=== PATIENT | male | born 1955 | race Two or more races ===

== ENCOUNTER → 2020-01-18 | Emergency (ER) | payer MEDICAID ==
[~2020-01-18] VITALS: Ht 172.7 cm; Wt 61.2 kg
[~2020-01-18] MED LIST: FAM20T PO; KETOROLAC TROMETH 15 mg/ml 1ML VL IV ONE; KETOROLAC TROMETH 30 MG/ML 1ML VIAL ONE; POLY335015 PO; SODIUM CHLORIDE 0.9% 1,000 ML IV ONE; TAMSULOSIN HYDROCHLORIDE 0.4 MG CAP PO ONE; [UNRECOGNIZED DRUG - CODE] PO; cefTRIAXone 1GM/50ML D5W 50 ML IV ONE
[2020-01-18 08:25] VITALS: BP 125/75
[2020-01-18 08:29] LABS: Basophils # (auto) 0 10 ^3/uL (0-0.2); Basophils % (auto) 0.8 % (0.0-2.0); Eosinophils # (auto) 0 10 ^3/uL (0-0.8); Eosinophils % (auto) 0.6 % (0.0-7.0); Hematocrit 41.2 % (41.0-53.0); Hemoglobin 14.1 g/dL (13.5-17.5); Lymphocytes # (auto) 0.7 10 ^3/uL (0.4-5.4); Lymphocytes % (auto) 14.4 % (10.0-50.0); Mean Corpuscular Hemoglobin 31.3 pg (28.0-32.0); Mean Corpuscular Hgb Conc. 34.1 g/dL (32.0-36.0); Mean Corpuscular Volume 91.8 fL (80.0-100.0); Monocytes # (auto) 0.4 10 ^3/uL (0-1.3); Monocytes % (auto) 7.6 % (0.0-12.0); Neutrophils # (auto) 3.6 10 ^3/uL (1.6-8.6); Neutrophils % (auto) 76.6 % (37.0-80.0); Platelet Count (auto) 221 10^3/uL (140-450); Red Blood Cells 4.49 10^6/uL (4.5-5.90); Red Cell Distribution Width 13.6 % (11.8-14.3); White Blood Cell 4.6 10^3/uL (4.4-10.8)
[2020-01-18 08:41] LABS: Alanine Aminotransferase 18 U/L (16-61); Anion Gap 9 (5-15); Aspartate Aminotransferase 11 U/L (15-37); BUN/Creatinine Ratio 19.2; Blood Urea Nitrogen 15 mg/dL (7-18); Calcium 9.1 mg/dL (8.5-10.1); Carbon Dioxide 25 mmol/L (21-32); Chloride 99 mmol/L (98-107); GFR African American 129 mL/min; GFR Non-African American 107 mL/min; Glucose 96 mg/dL (74-106); Potassium 4.2 mmol/L (3.5-5.1); Sodium 133 mmol/L (136-145)
[2020-01-18 08:46] LABS: Alkaline Phosphatase 73 U/L (45-117); Bilirubin, Total 0.6 mg/dL (0.2-1.0); Total Protein 7.5 g/dL (6.4-8.2)
[2020-01-18 08:46] LABS: Urine Bacteria FEW /hpf (None Seen); Urine Blood 2+ /uL (Negative); Urine Mucus FEW (None Seen); Urine Specific Gravity 1.019 (1.001-1.035); Urine WBC 2 /hpf (0 - 3)
== END | disposition home or self-care (01) ==
LOC: EDUNIT# 07:53 → EDBD 07:53 → ER 07:53
DX: N39.0 Urinary tract infection, site not specified (principal); I10 Essential (primary) hypertension
CPT/HCPCS: 36415; 74176; 80053; 81001; 84154; 84484; 85025; 87086; 93005; 96365; 96375; 99285; J0696; J1885; 87088; 87186

== ENCOUNTER 2020-01-24 10:25 | Emergency (ER) | payer MEDICAID ==
[~2020-01-24] VITALS: Ht 172.7 cm; Wt 61.2 kg
[~2020-01-24 10:25] MED LIST changes: -KETOROLAC TROMETH 15 mg/ml 1ML VL IV ONE; -KETOROLAC TROMETH 30 MG/ML 1ML VIAL ONE; -SODIUM CHLORIDE 0.9% 1,000 ML IV ONE; -TAMSULOSIN HYDROCHLORIDE 0.4 MG CAP PO ONE; -cefTRIAXone 1GM/50ML D5W 50 ML IV ONE
[2020-01-24 12:06] LABS: Urine Bacteria NONE SEEN /hpf (None Seen); Urine Blood Negative /uL (Negative); Urine Specific Gravity 1.014 (1.001-1.035); Urine WBC <1 /hpf (0 - 3)
[2020-01-24] MEDS ORDERED: METOCLOPRAMIDE HCL 5MG/ml INJ 2ml VIAL IM ONE (12:15)
[2020-01-24] MEDS ORDERED: KETOROLAC TROMETH 60MG/2ML VIAL IM ONE (12:15)
[2020-01-24 13:00] VITALS: BP 105/70
[2020-01-24 13:14] LABS: Basophils # (auto) 0.1 10 ^3/uL (0-0.2); Basophils % (auto) 0.9 % (0.0-2.0); Eosinophils # (auto) 0.1 10 ^3/uL (0-0.8); Eosinophils % (auto) 1.4 % (0.0-7.0); Hematocrit 38.6 % (41.0-53.0); Hemoglobin 13.3 g/dL (13.5-17.5); Lymphocytes # (auto) 1.2 10 ^3/uL (0.4-5.4); Mean Corpuscular Hemoglobin 31.7 pg (28.0-32.0); Mean Corpuscular Hgb Conc. 34.6 g/dL (32.0-36.0); Mean Corpuscular Volume 91.6 fL (80.0-100.0); Monocytes # (auto) 0.5 10 ^3/uL (0-1.3); Monocytes % (auto) 8.1 % (0.0-12.0); Neutrophils # (auto) 4.2 10 ^3/uL (1.6-8.6); Neutrophils % (auto) 69.6 % (37.0-80.0); Nucleated Red Blood Cells % 0.1 %; Platelet Count (auto) 210 10^3/uL (140-450); Red Blood Cells 4.21 10^6/uL (4.5-5.90); Red Cell Distribution Width 13.3 % (11.8-14.3); White Blood Cell 6.1 10^3/uL (4.4-10.8)
[2020-01-24 13:38] LABS: Calcium 8.9 mg/dL (8.5-10.1); Potassium 3.8 mmol/L (3.5-5.1)
[2020-01-24 13:42] LABS: BUN/Creatinine Ratio 23.4; Bilirubin, Total 0.4 mg/dL (0.2-1.0); Total Protein 7.2 g/dL (6.4-8.2)
[2020-01-24] MEDS ORDERED: FAMOTIDINE 20 MG TAB PO ONE (14:45)
[2020-01-24] MEDS ORDERED: DONNATAL 5ml ORAL Elix (BELLADONNA ALK-PHENOBARB) PO ONE (14:45)
[2020-01-24] MEDS ORDERED: ALUM & MAG HYDROX-SIMETH LIQ(MAALOX) 30 ML PO ONE (14:45)
== END 2020-01-24 14:53 | disposition home or self-care (01) ==
LOC: ER 10:25
DX: R10.11 Right upper quadrant pain (principal); R19.7 Diarrhea, unspecified; R11.2 Nausea with vomiting, unspecified; K21.9 Gastro-esophageal reflux disease without esophagitis; E11.9 Type 2 diabetes mellitus without complications; Z90.49 Acquired absence of other specified parts of digestive tract; Z88.2 Allergy status to sulfonamides
CPT/HCPCS: 36415; 80053; 81001; 85025; 93005; 96372; 99284; J1885; J2765

== ENCOUNTER → 2020-01-26 | Emergency (ER) | payer MEDICAID ==
[~2020-01-26] VITALS: Ht 172.7 cm; Wt 63.0 kg
[~2020-01-26] MED LIST changes: +KETOROLAC TROMETH 60MG/2ML VIAL IM ONE
[2020-01-26 11:40] VITALS: BP 112/65
== END | disposition home or self-care (01) ==
LOC: ER 10:53
DX: R10.13 Epigastric pain (principal); E11.9 Type 2 diabetes mellitus without complications; I10 Essential (primary) hypertension; K21.9 Gastro-esophageal reflux disease without esophagitis; Z90.49 Acquired absence of other specified parts of digestive tract; Z79.899 Other long term (current) drug therapy; Z88.2 Allergy status to sulfonamides; Z88.8 Allergy status to other drugs, medicaments and biological substances
CPT/HCPCS: 93005; 96372; 99283; J1885

== ENCOUNTER 2020-05-24 11:59 | Emergency (ER) | payer MEDICAID ==
[~2020-05-24] VITALS: Ht 172.7 cm; Wt 63.5 kg
[~2020-05-24 11:59] MED LIST changes: -FAM20T PO; +FAMO20TA10 PO; -KETOROLAC TROMETH 60MG/2ML VIAL IM ONE
[2020-05-24] MEDS ORDERED: LIDOCAINE VISCOUS 2% 15ML UD PO ONE (13:00)
[2020-05-24] MEDS ORDERED: DONNATAL 5ml ORAL Elix (BELLADONNA ALK-PHENOBARB) PO ONE (13:00)
[2020-05-24] MEDS ORDERED: ALUM & MAG HYDROX-SIMETH LIQ(MAALOX) 30 ML PO ONE (13:00)
[2020-05-24 13:24] LABS: Basophils # (auto) 0 10 ^3/uL (0-0.2); Basophils % (auto) 0.6 % (0.0-2.0); Eosinophils # (auto) 0.1 10 ^3/uL (0-0.8); Hematocrit 40.9 % (41.0-53.0); Hemoglobin 14.1 g/dL (13.5-17.5); Lymphocytes # (auto) 0.8 10 ^3/uL (0.4-5.4); Lymphocytes % (auto) 15.9 % (10.0-50.0); Mean Corpuscular Hemoglobin 31.6 pg (28.0-32.0); Mean Corpuscular Hgb Conc. 34.6 g/dL (32.0-36.0); Mean Corpuscular Volume 91.3 fL (80.0-100.0); Monocytes # (auto) 0.5 10 ^3/uL (0-1.3); Monocytes % (auto) 9.1 % (0.0-12.0); Neutrophils # (auto) 3.9 10 ^3/uL (1.6-8.6); Neutrophils % (auto) 73.4 % (37.0-80.0); Nucleated Red Blood Cells % 0.1 %; Platelet Count (auto) 158 10^3/uL (140-450); Red Blood Cells 4.48 10^6/uL (4.5-5.90); Red Cell Distribution Width 12.8 % (11.8-14.3); White Blood Cell 5.3 10^3/uL (4.4-10.8)
[2020-05-24 13:44] LABS: Albumin 4.1 g/dL (3.4-5.0); Anion Gap 4 (5-15); Blood Urea Nitrogen 15 mg/dL (7-18); Calcium 8.7 mg/dL (8.5-10.1); Carbon Dioxide 29 mmol/L (21-32); Chloride 98 mmol/L (98-107); Glucose 89 mg/dL (74-106); Sodium 131 mmol/L (136-145)
[2020-05-24 13:46] LABS: Alanine Aminotransferase 16 U/L (16-61); Aspartate Aminotransferase 10 U/L (15-37); GFR African American 120 mL/min; GFR Non-African American 99 mL/min
[2020-05-24 13:50] LABS: Alkaline Phosphatase 61 U/L (45-117); Bilirubin, Total 0.7 mg/dL (0.2-1.0); Total Protein 7.5 g/dL (6.4-8.2)
[2020-05-24 13:51] LABS: BUN/Creatinine Ratio 18.1
[2020-05-24 15:13] VITALS: BP 135/78
== END 2020-05-24 15:21 | disposition home or self-care (01) ==
LOC: ER 11:59
DX: K29.70 Gastritis, unspecified, without bleeding (principal); E11.9 Type 2 diabetes mellitus without complications; K21.9 Gastro-esophageal reflux disease without esophagitis; I10 Essential (primary) hypertension; Z88.2 Allergy status to sulfonamides
CPT/HCPCS: 36415; 71046; 74176; 80053; 83690; 84484; 85025; 93005

== ENCOUNTER 2022-02-19 15:47 | Emergency (ER) | payer MEDICARE, MEDICAID ==
[~2022-02-19] VITALS: Ht 170.2 cm; Wt 68.0 kg
[2022-02-19 18:32] LABS: Basophils # (auto) 0 10 ^3/uL (0-0.2); Basophils % (auto) 0.5 % (0.0-2.0); Eosinophils # (auto) 0 10 ^3/uL (0-0.8); Eosinophils % (auto) 0.4 % (0.0-7.0); Hematocrit 37.2 % (41.0-53.0); Lymphocytes # (auto) 0.8 10 ^3/uL (0.4-5.4); Mean Corpuscular Hemoglobin 31.1 pg (28.0-32.0); Mean Corpuscular Hgb Conc. 34.9 g/dL (32.0-36.0); Mean Corpuscular Volume 89.1 fL (80.0-100.0); Monocytes # (auto) 0.8 10 ^3/uL (0-1.3); Monocytes % (auto) 10.1 % (0.0-12.0); Neutrophils # (auto) 6.3 10 ^3/uL (1.6-8.6); Nucleated Red Blood Cells % 0.1 %; Red Blood Cells 4.17 10^6/uL (4.5-5.90)
[2022-02-19 18:53] LABS: Albumin 4.1 g/dL (3.4-5.0); Calcium 9.1 mg/dL (8.5-10.1); Potassium 3.8 mmol/L (3.5-5.1)
[2022-02-19 18:57] LABS: BUN/Creatinine Ratio 14.8; Bilirubin, Total 0.4 mg/dL (0.2-1.0)
[2022-02-19] MEDS ORDERED: LORazepam 2MG/ML-1ML VIAL IV ONE (20:45)
[2022-02-19] MEDS ORDERED: LIDOCAINE 2% JELLY 11ml (GLYDO) UR ONE (20:45)
[2022-02-19 21:06] VITALS: BP 127/73
[2022-02-19 21:27] LABS: Urine Bacteria FEW /hpf (None Seen); Urine Blood Negative /uL (Negative); Urine Hyaline Cast FEW /lpf (0 - 2); Urine Specific Gravity 1.005 (1.001-1.035); Urine WBC 1 /hpf (0 - 3)
[2022-02-19] MEDS ORDERED: TAM04C PO (21:35)
== END 2022-02-19 23:27 | disposition home or self-care (01) ==
LOC: ER 15:47 → EDBD 15:47 → ER 23:27
DX: R33.9 Retention of urine, unspecified (principal); E11.9 Type 2 diabetes mellitus without complications; K21.9 Gastro-esophageal reflux disease without esophagitis; I10 Essential (primary) hypertension; Z90.49 Acquired absence of other specified parts of digestive tract; Z88.2 Allergy status to sulfonamides
CPT/HCPCS: 36415; 51702; 74176; 80053; 81001; 82150; 83690; 85025; 93005; 99285; J2060

== ENCOUNTER 2022-04-05 04:57 | Emergency (ER) | payer MEDICARE, MEDICAID ==
[~2022-04-05] VITALS: Ht 175.3 cm; Wt 68.0 kg
[~2022-04-05 04:57] MED LIST changes: +TAM04C PO
[2022-04-05 10:00] VITALS: BP 167/78
[2022-04-05] MEDS ORDERED: ONDANSETRON ODT 4 MG TAB PO ONE (10:00)
[2022-04-05] MEDS ORDERED: MORPHINE SULFATE INJ 2 MG/ml SYRG IM ONE (10:00)
[2022-04-05] MEDS ORDERED: HYDR-4902 PO (10:03)
[2022-04-05] MEDS ORDERED: HYDR-4798 PO ×2 (10:21→10:23)
[2022-04-05] MEDS ORDERED: HYDR-4795 PO (11:10)
== END 2022-04-05 11:02 | disposition home or self-care (01) ==
LOC: EDBD 04:57 → ER 04:57 → EDUNIT# 04:57 → ER 11:02
DX: G89.29 Other chronic pain (principal); M54.50 Low back pain, unspecified; E11.9 Type 2 diabetes mellitus without complications; K21.9 Gastro-esophageal reflux disease without esophagitis; Z90.49 Acquired absence of other specified parts of digestive tract; Z88.2 Allergy status to sulfonamides; Z76.0 Encounter for issue of repeat prescription
CPT/HCPCS: 96372; 99283; J2270; Q0162

== ENCOUNTER 2022-09-13 04:51 | Inpatient (IN) | payer MEDICARE, MEDICAID ==
[~2022-09-13] VITALS: Ht 185.4 cm; Wt 61.5 kg
[~2022-09-13 04:51] MED LIST changes: +HYDR-4795 PO
[2022-09-13] MEDS ORDERED: ONDANSETRON ODT 4 MG TAB PO ONE (08:30)
[2022-09-13] MEDS ORDERED: MORPHINE SULFATE 4 MG/ML SYR/VIAL IM ONE (08:30)
[2022-09-13 12:03] LABS: Basophils # (auto) 0 10 ^3/uL (0-0.2); Basophils % (auto) 0.3 % (0.0-2.0); Eosinophils # (auto) 0 10 ^3/uL (0-0.8); Eosinophils % (auto) 0.4 % (0.0-7.0); Lymphocytes # (auto) 0.9 10 ^3/uL (0.4-5.4); Lymphocytes % (auto) 15.8 % (10.0-50.0); Mean Corpuscular Hemoglobin 31.2 pg (28.0-32.0); Mean Corpuscular Hgb Conc. 34.2 g/dL (32.0-36.0); Mean Corpuscular Volume 91.3 fL (80.0-100.0); Monocytes # (auto) 0.4 10 ^3/uL (0-1.3); Monocytes % (auto) 6.6 % (0.0-12.0); Neutrophils # (auto) 4.5 10 ^3/uL (1.6-8.6); Neutrophils % (auto) 76.9 % (37.0-80.0); Red Blood Cells 4.49 10^6/uL (4.5-5.90); Red Cell Distribution Width 14.1 % (11.8-14.3); White Blood Cell 5.8 10^3/uL (4.4-10.8)
[2022-09-13 12:25] LABS: Albumin 4.6 g/dL (3.4-5.0); BUN/Creatinine Ratio 15.2; Calcium 9.6 mg/dL (8.5-10.1); Potassium 4.4 mmol/L (3.5-5.1); Total Protein 8.2 g/dL (6.4-8.2)
[2022-09-13 12:30] LABS: Bilirubin, Total 0.5 mg/dL (0.2-1.0)
[2022-09-13 12:50] LABS: Urine Bacteria NONE SEEN /hpf (None Seen); Urine Blood Negative /uL (Negative); Urine Specific Gravity 1.016 (1.001-1.035); Urine WBC 1 /hpf (0 - 3)
[2022-09-13] MEDS ORDERED: DEXTROSE (50%) 50ML SYRG IV PRN (18:00)
[2022-09-13] MEDS: SODIUM CHLORIDE 0.9% 1,000 ML IV SCH (18:46)
[2022-09-13 19:09] LABS: Cholesterol 228 mg/dL (< 200); HDL Cholesterol 63 mg/dL (40-59); LDL Cholesterol 166 mg/dL (< 100); Triglycerides 66 mg/dL (< 150)
[2022-09-13] MEDS: MORPHINE SULFATE INJ 2 MG/ml SYRG IV PRN ×2 (20:30→22:39)
[2022-09-13] MEDS ORDERED: diazePAM 5 MG TAB PO ONE ×2 (20:45→23:00)
[2022-09-13] MEDS: ACCU-CHEK COMFORT CURVE STRIP VI SCH (22:00)
[2022-09-13] MEDS: PANTOPRAZOLE 40 MG/10 ML VIAL INJ IV SCH (22:00)
[2022-09-13] MEDS: InsuLIN REG 1unit/0.01ml Soln (100units/ml) SC SCH (22:00)
[2022-09-13] MEDS: ONDANSETRON HCL 4 MG/2 ML VIAL IV PRN (23:04)
[2022-09-14] MEDS: ACETAMINOPHEN 325 MG TAB PO PRN ×2 (03:20→05:56)
[2022-09-14 05:10] LABS: Basophils # (auto) 0 10 ^3/uL (0-0.2); Basophils % (auto) 0.5 % (0.0-2.0); Eosinophils # (auto) 0.1 10 ^3/uL (0-0.8); Eosinophils % (auto) 2.1 % (0.0-7.0); Hemoglobin 12.8 g/dL (13.5-17.5); Lymphocytes % (auto) 19.2 % (10.0-50.0); Mean Corpuscular Hemoglobin 31.3 pg (28.0-32.0); Mean Corpuscular Hgb Conc. 33.7 g/dL (32.0-36.0); Mean Corpuscular Volume 92.8 fL (80.0-100.0); Monocytes # (auto) 0.5 10 ^3/uL (0-1.3); Monocytes % (auto) 10.4 % (0.0-12.0); Neutrophils # (auto) 3.4 10 ^3/uL (1.6-8.6); Neutrophils % (auto) 67.8 % (37.0-80.0); Red Blood Cells 4.09 10^6/uL (4.5-5.90); Red Cell Distribution Width 14.4 % (11.8-14.3)
[2022-09-14 05:22] LABS: Anion Gap 7 (5-15); BUN/Creatinine Ratio 15.6; Blood Urea Nitrogen 12 mg/dL (7-18); Calcium 8.7 mg/dL (8.5-10.1); Carbon Dioxide 25 mmol/L (21-32); Chloride 107 mmol/L (98-107); GFR African American 130 mL/min; GFR Non-African American 108 mL/min; Glucose 104 mg/dL (74-106); Sodium 139 mmol/L (136-145)
[2022-09-14] MEDS: SODIUM CHLORIDE 0.9% 1,000 ML IV SCH ×2 (06:20→20:25)
[2022-09-14] MEDS: InsuLIN REG 1unit/0.01ml Soln (100units/ml) SC SCH ×4 (07:00→22:00)
[2022-09-14] MEDS: ACCU-CHEK COMFORT CURVE STRIP VI SCH ×4 (07:09→22:00)
[2022-09-14] MEDS: ONDANSETRON HCL 4 MG/2 ML VIAL IV PRN ×3 (08:19→22:46)
[2022-09-14] MEDS: MORPHINE SULFATE INJ 2 MG/ml SYRG IV PRN ×3 (08:19→22:45)
[2022-09-14] MEDS ORDERED: ENOXAPARIN SOD 40 MG/0.4 ML SYRINGE SC SCH (10:00)
[2022-09-14] MEDS: diazePAM 5 MG TAB PO PRN ×2 (11:26→20:10)
[2022-09-14] MEDS: TAMSULOSIN HYDROCHLORIDE 0.4 MG CAP PO SCH (11:26)
[2022-09-14] MEDS: PANTOPRAZOLE 40 MG/10 ML VIAL INJ IV SCH ×2 (11:26→22:44)
[2022-09-14] MEDS: SUCRALFATE 1 GM/10 ML ORAL SUSP PO SCH (16:37)
[2022-09-14 17:47] VITALS: BP 125/90
[2022-09-14 22:00] VITALS: BP 108/78
[2022-09-15] MEDS: MORPHINE SULFATE INJ 2 MG/ml SYRG IV PRN ×4 (03:10→21:34)
[2022-09-15] MEDS: HYDROcodone-ACET 5/325MG TAB PO PRN ×2 (03:25→10:06)
[2022-09-15] MEDS: diazePAM 5 MG TAB PO PRN ×3 (04:35→23:33)
[2022-09-15 05:00] VITALS: BP 116/80
[2022-09-15] MEDS: InsuLIN REG 1unit/0.01ml Soln (100units/ml) SC SCH ×4 (07:00→22:00)
[2022-09-15] MEDS: ACCU-CHEK COMFORT CURVE STRIP VI SCH ×4 (07:04→21:40)
[2022-09-15] MEDS: SUCRALFATE 1 GM/10 ML ORAL SUSP PO SCH ×2 (07:04→17:31)
[2022-09-15 09:00] VITALS: BP_SYST 120; BP_SYST 126; BP_DIAS 53; BP_DIAS 59
[2022-09-15] MEDS: SODIUM CHLORIDE 0.9% 1,000 ML IV SCH ×2 (09:45→23:05)
[2022-09-15] MEDS: TAMSULOSIN HYDROCHLORIDE 0.4 MG CAP PO SCH (10:06)
[2022-09-15] MEDS: PANTOPRAZOLE 40 MG/10 ML VIAL INJ IV SCH ×2 (10:06→21:33)
[2022-09-15] MEDS ORDERED: POLYETHYLENE GLYCOL 17 GM PWDR PO PRN (11:30)
[2022-09-15 13:00] VITALS: BP 123/81
[2022-09-15 16:50] VITALS: BP 120/64
[2022-09-15] MEDS: HYDROcodone-ACET 10/325MG TAB PO PRN (18:59)
[2022-09-15] MEDS: ONDANSETRON HCL 4 MG/2 ML VIAL IV PRN (21:34)
[2022-09-15 22:00] VITALS: BP 101/73
[2022-09-16] MEDS: ACETAMINOPHEN 325 MG TAB PO PRN (00:17)
[2022-09-16] MEDS: MORPHINE SULFATE INJ 2 MG/ml SYRG IV PRN ×3 (04:47→22:18)
[2022-09-16 05:00] VITALS: BP 107/80
[2022-09-16] MEDS: SUCRALFATE 1 GM/10 ML ORAL SUSP PO SCH ×2 (06:27→17:00)
[2022-09-16] MEDS: InsuLIN REG 1unit/0.01ml Soln (100units/ml) SC SCH ×4 (06:39→21:40)
[2022-09-16] MEDS: ACCU-CHEK COMFORT CURVE STRIP VI SCH ×4 (06:39→21:40)
[2022-09-16] MEDS: diazePAM 5 MG TAB PO PRN ×3 (07:54→23:32)
[2022-09-16] MEDS: HYDROcodone-ACET 10/325MG TAB PO PRN ×2 (07:54→20:07)
[2022-09-16] MEDS ORDERED: NALOXONE HCL 0.4 MG/ML VIAL ONE ×2 (08:16→10:04)
[2022-09-16] MEDS ORDERED: MIDAZOLAM HCL 5 MG/ML-1ML VIAL ONE ×2 (08:17→08:21)
[2022-09-16] MEDS ORDERED: FLUMAZENIL 0.1 MG/ML INJ 10ML MDV IV ONE (08:17)
[2022-09-16] MEDS ORDERED: diphenhdrAMINE HCL 50 MG/1 ML VL ONE (08:17)
[2022-09-16] MEDS ORDERED: fentaNYL CITRATE 100 MCG/2 ML VL ONE (08:17)
[2022-09-16] MEDS ORDERED: LIDOCAINE VISCOUS 2% 15ML UD ONE (08:17)
[2022-09-16] MEDS ORDERED: SODIUM CHLORIDE LOCK 10 ML ONE ×2 (08:17→08:22)
[2022-09-16] MEDS: PANTOPRAZOLE 40 MG/10 ML VIAL INJ IV SCH ×2 (08:30→21:58)
[2022-09-16] MEDS: TAMSULOSIN HYDROCHLORIDE 0.4 MG CAP PO SCH (08:31)
[2022-09-16 09:00] VITALS: BP 125/77
[2022-09-16] MEDS ORDERED: EPINEPHrine HCL 1 MG/10 ML SYRG ONE (10:06)
[2022-09-16] MEDS: SODIUM CHLORIDE 0.9% 1,000 ML IV SCH (12:25)
[2022-09-16 13:00] VITALS: BP 101/65
[2022-09-16] MEDS ORDERED: LIDOCAINE 2% (LOCAL ANESTH.) PF 5ml SDV ONE (15:56)
[2022-09-16] MEDS ORDERED: PROPOFOL 10 MG/ML 20 ML IV ONE (15:56)
[2022-09-16 17:18] VITALS: BP 111/66
[2022-09-16 22:00] VITALS: BP 115/77
[2022-09-17] MEDS: SODIUM CHLORIDE 0.9% 1,000 ML IV SCH (03:00)
[2022-09-17 05:00] VITALS: BP 104/61
[2022-09-17] MEDS: MORPHINE SULFATE INJ 2 MG/ml SYRG IV PRN ×3 (05:07→13:47)
[2022-09-17] MEDS: diazePAM 5 MG TAB PO PRN ×3 (05:44→16:45)
[2022-09-17] MEDS: InsuLIN REG 1unit/0.01ml Soln (100units/ml) SC SCH ×3 (06:05→17:00)
[2022-09-17] MEDS: ACCU-CHEK COMFORT CURVE STRIP VI SCH ×2 (06:05→11:30)
[2022-09-17] MEDS: SUCRALFATE 1 GM/10 ML ORAL SUSP PO SCH (06:28)
[2022-09-17 09:00] VITALS: BP 116/73
[2022-09-17] MEDS: PANTOPRAZOLE 40 MG/10 ML VIAL INJ IV SCH (09:18)
[2022-09-17] MEDS: TAMSULOSIN HYDROCHLORIDE 0.4 MG CAP PO SCH (09:18)
[2022-09-17] MEDS ORDERED: PANT40TA2 PO (09:20)
[2022-09-17] MEDS: HYDROcodone-ACET 10/325MG TAB PO PRN ×2 (11:46→16:57)
[2022-09-17 13:00] VITALS: BP 93/70
[2022-09-17 14:06] VITALS: BP 112/74
[2022-09-17 17:00] VITALS: BP 105/86
== END 2022-09-17 17:00 | disposition hospice, home (50) | DRG 241 ==
LOC: ER 04:51 → EDBD 04:51 → OVERFLOW 17:46 → WEST WING 09-14 16:01
PROVIDERS: ADMIT Registered Nurse; ATTEND Internal Medicine
PROC: 0DB68ZX Excision of Stomach, Via Natural or Artificial Opening Endoscopic, Diagnostic (ICD-10-PCS; 2022-09-16)
PROC: 0DB98ZX Excision of Duodenum, Via Natural or Artificial Opening Endoscopic, Diagnostic (ICD-10-PCS; principal; 2022-09-16 16:15)
DX: K29.70 Gastritis, unspecified, without bleeding (principal); R62.7 Adult failure to thrive; E11.9 Type 2 diabetes mellitus without complications; F41.9 Anxiety disorder, unspecified; Z20.822 Contact with and (suspected) exposure to COVID-19; I10 Essential (primary) hypertension; K44.9 Diaphragmatic hernia without obstruction or gangrene; K21.9 Gastro-esophageal reflux disease without esophagitis; M54.9 Dorsalgia, unspecified; G89.29 Other chronic pain; Z90.49 Acquired absence of other specified parts of digestive tract; Z88.2 Allergy status to sulfonamides; Z88.8 Allergy status to other drugs, medicaments and biological substances
CPT/HCPCS: 36415; 43239; 71046; 74176; 80048; 80053; 80061; 81001; 82962; 83036; 83690; 84443; 85025; 87081; 87086; 87088; 87186; 87426; 93005; 96360; 96372; C9113; G0378; J2001; J2250; J2405; J2704; Q0162

== ENCOUNTER 2023-09-11 14:36 | Emergency (ER) | payer MEDICARE, MEDICAID ==
[~2023-09-11] VITALS: Ht 172.7 cm; Wt 59.6 kg
[~2023-09-11 14:36] MED LIST changes: +DESM0.1T13 PO; -FAMO20TA10 PO; +PANT40TA2 PO; -TAM04C PO; +TAMS-35 PO; -[UNRECOGNIZED DRUG - CODE] PO
[2023-09-11 15:42] LABS: Urine Bacteria NONE SEEN /hpf (None Seen); Urine Blood Negative /uL (Negative); Urine Clarity Clear (Clear); Urine Color Yellow (Yellow); Urine Mucus FEW (None Seen); Urine Protein, UAD Negative (Negative); Urine Specific Gravity 1.018 (1.001-1.035); Urine Urobilinogen Normal (Negative); Urine WBC <1 /hpf (0 - 3); Urine pH 6.5 (5.0-8.0)
[2023-09-11 15:43] LABS: Basophils # (auto) 0 10 ^3/uL (0-0.2); Basophils % (auto) 0.6 % (0.0-2.0); Eosinophils # (auto) 0.1 10 ^3/uL (0-0.8); Eosinophils % (auto) 1.6 % (0.0-7.0); Hematocrit 39.5 % (41.0-53.0); Hemoglobin 13.6 g/dL (13.5-17.5); Lymphocytes # (auto) 1.1 10 ^3/uL (0.4-5.4); Lymphocytes % (auto) 21.1 % (10.0-50.0); Mean Corpuscular Hgb Conc. 34.5 g/dL (32.0-36.0); Mean Corpuscular Volume 92.6 fL (80.0-100.0); Monocytes # (auto) 0.4 10 ^3/uL (0-1.3); Monocytes % (auto) 8.5 % (0.0-12.0); Neutrophils # (auto) 3.6 10 ^3/uL (1.6-8.6); Neutrophils % (auto) 68.2 % (37.0-80.0); Nucleated Red Blood Cells % 0.1 %; Red Blood Cells 4.27 10^6/uL (4.5-5.90); Red Cell Distribution Width 13.2 % (11.8-14.3); White Blood Cell 5.2 10^3/uL (4.4-10.8)
[2023-09-11] MEDS ORDERED: SODIUM CHLORIDE 0.9% 1,000 ML IV ONE (17:15)
[2023-09-11] MEDS ORDERED: KETAMINE 50mg/ML 1ml syringe IV ONE (17:15)
[2023-09-11 17:16] LABS: Alanine Aminotransferase 14 U/L (7-40); Alkaline Phosphatase 62 U/L (46-116); Anion Gap 5 (5-15); Aspartate Aminotransferase 15 U/L (13-40); BUN/Creatinine Ratio 15.4 (10.0-20.0); Blood Urea Nitrogen 14 mg/dL (9-23); Calcium 9.5 mg/dL (8.7-10.4); Carbon Dioxide 28 mmol/L (20-30); Chloride 99 mmol/L (98-107); Glucose 97 mg/dL (74-106); Lipase 31 U/L (12-53); Potassium 4.3 mmol/L (3.5-5.1); Sodium 132 mmol/L (136-145)
[2023-09-11 17:17] LABS: Bilirubin, Total 0.5 mg/dL (0.2-1.0); Total Protein 7.2 g/dL (5.7-8.2)
[2023-09-11] MEDS ORDERED: MAGNESIUM CITRATE SOLUTION 300 ML BTL PO ONE (18:30)
[2023-09-11] MEDS ORDERED: FLEET ENEMA(ADULT) 135 ML PR ONE ×2 (18:30→20:15)
[2023-09-11] MEDS ORDERED: LORazepam 2MG/ML-1ML VIAL IV ONE (18:30)
[2023-09-11] MEDS ORDERED: KETOROLAC TROMETH 30 MG/ML 1ML VIAL IV ONE (20:00)
[2023-09-11] MEDS ORDERED: ALPRAZolam 0.5 MG TAB PO ONE (20:00)
[2023-09-11 20:01] VITALS: BP 111/75; PULSE 75; RESP 18; TEMP 97.6; O2SAT 96
[2023-09-11] MEDS ORDERED: KETOROLAC TROMETH 30 MG/ML 1ML VIAL IM ONE (20:15)
== END 2023-09-11 22:37 | disposition home or self-care (01) ==
LOC: ER 14:36
DX: G89.29 Other chronic pain (principal); R10.84 Generalized abdominal pain; F11.20 Opioid dependence, uncomplicated; K59.03 Drug induced constipation; T40.2X5A Adverse effect of other opioids, initial encounter; K21.9 Gastro-esophageal reflux disease without esophagitis; I10 Essential (primary) hypertension; E11.9 Type 2 diabetes mellitus without complications; Z79.899 Other long term (current) drug therapy; Z88.2 Allergy status to sulfonamides; Z88.8 Allergy status to other drugs, medicaments and biological substances; Y92.89 Other specified places as the place of occurrence of the external cause
CPT/HCPCS: 36415; 74176; 80053; 81001; 83690; 85025; 93005; 96372; 99285; J1885

== ENCOUNTER 2024-09-11 06:51 | Inpatient (IN) | payer MEDICARE, MEDICAID ==
[~2024-09-11] VITALS: Ht 172.7 cm; Wt 79.3 kg
--- NOTE | 2024-09-11 07:01 | ECG ---
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
--- NOTE | 2024-09-11 07:07 | ED.PDOC ---
History of Present Illness HPI Comments 68-year-old male presents with a chief complaint of chest pain x onset last night with associated SOB, nausea, vomiting, and diarrhea. Patient states that his pain is localized to his sternal region, non-radiating, describes as pressure, and rates his pain a 7 out of 10. Patients EKG shows NSR with a rate of 92 and LAE. Patient denies any MIs in the past, but does report a history of CHF. 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 Patient mentions that onset of his symptoms began last night and have worsened this morning. No other symptoms or modifying factors present at this time. Chief Complaint: Chest Pain Time Seen by MD: 07:00 Primary Care Provider: Unknown Reviewed Notes: Nurses Notes, Medications, Allergies Allergies: Coded Allergies: Nitrofurantoin (Verified Allergy, Unknown, 01/26/20) Sulfa Antibiotics (Verified Allergy, Unknown, 01/18/20) Sulfamethoxazole w/Trimethoprim (Verified Allergy, Unknown, 01/26/20) Home Meds Active Scripts Pantoprazole Sodium Sesquihydr (Protonix) 40 Mg Tab, 40 MG PO DAILY, #30 TAB 5 Refills Prov:KELTON PENA MD 09/17/22 Hydrocodone-Acetaminophen (Hydrocodone Bitartrate/AC 7.5-325 mg) 1 Tab Tab, 1 TAB PO QIDP, #10 TAB 0 Refills Prov:LUCIO JUDD 04/05/22 Tamsulosin Hcl (Flomax) 0.4 Mg Cap, 1 CAP PO DAILY, #30 CAP 11 Refills Prov:LEEROY PERKINS MD 02/19/22 Reported Medications Polyethylene Glycol (Miralax) 3,350 Nf Pow, 1 PACK PO DAILYP, #30 PACK 3 Refills 12/13/19 Desmopressin Acetate (Desmopressin Acetate) Unknown Strength Tab, PO HS, TAB 12/13/19 Information Source: Patient Mode of Arrival: Ambulatory Severity: Moderate Timing: Hours Duration: Since onset Prehospital treatment: None Past Medical History PAST MEDICAL HISTORY: CHF, DM, GERD, HTN, Liver Surgical History: Cholecystectomy Family History Family History: Reviewed,noncontributory to illness Social History Smoker: Non-Smoker Alcohol: Denies ETOH Use Drugs: Denies Drug Use Lives In: Home Constitutional: denies: chills, diaphoresis, fatigue, fever, malaise, sweats, weakness, others EENTM: denies: blurred vision, double vision, ear bleeding, ear discharge, ear drainage, ear pain, ear ringing, eye pain, eye redness, hearing loss, mouth pain, mouth swelling, nasal discharge, nose bleeding, nose congestion, nose pain, photophobia, tearing, throat pain, throat swelling, voice changes, others Respiratory: reports: shortness of breath; denies: cough, hemoptysis, orthopnea, SOB at rest, SOB with excertion, stridor, wheezing, others Cardiovascular: reports: chest pain; denies: dizzy spells, diaphoresis, Dyspnea on exertion, edema, irregular heart beat, left arm pain, lightheadedness, palpitations, PND, syncope, others Gastrointestinal: reports: diarrhea, nausea, vomiting; denies: abdomen distended, abdominal pain, blood streaked bowels, constipated, dysphagia, difficulty swallowing, hematemesis, melena, poor appetite, poor fluid intake, rectal bleeding, rectal pain, others Genitourinary: denies: burning, dysuria, flank pain, frequency, hematuria, incontinence, penile discharge, penile sore, pain, testicle pain, testicle swelling, urgency, others Neurological: denies: dizziness, fainting, headache, left sided numbness, left sided weakness, numbness, paresthesia, pre-existing deficit, right sided numbness, right sided weakness, seizure, speech problems, tingling, tremors, weakness, others Musculoskeletal: denies: back pain, gout, joint pain, joint swelling, muscle pain, muscle stiffness, neck pain, others Integumetry: denies: bruises, change in color, change in hair/nails, dryness, laceration, lesions, lumps, rash, wounds, others Allergic/Immunocompromised: denies: Difficulty Healing, Frequent Infections, Hives, Itching, others Hematologic/Lymphatic: denies: anemia, blood clots, easy bleeding, easy bruising, swollen glands, others Endocrine: denies: excessive hunger, excessive sweating, excessive thirst, excessive urination, flushing, intolerance to cold, intolerance to heat, unexplained weight gain, unexplained weight loss, others Psychiatric: denies: anxiety, bipolar disorder, depression, hopeless, panic d isorder, schizophrenia, sleepless, suicidal, others All Other Systems: Reviewed and Negative Physical Exam General Appearance: Moderate Distress HEENT: Normal ENT Inspection, Pharynx Normal, TMs Normal Neck: Full Range of Motion, Non-Tender, Normal, Normal Inspection Respiratory: Chest Non-Tender, Lungs Clear, No Accessory Muscle Use, No Respiratory Distress, Normal Breath Sounds Cardiovascular: No Edema, No JVD, No Murmur, No Gallop, Normal Peripheral Pulses, Regular Rate/Rhythm Breast Exam: Deferred Gastrointestinal: No Organomegaly, Non Tender, No Pulsatile Mass, Normal Bowel Sounds, Soft Genitalia: Deferred Pelvic: Deferred Rectal: Deferred Extremities: No calf tenderness, Normal capillary refill, Normal inspection, Normal range of motion, Non-tender, No pedal edema Musculoskeletal : Apperance: Normal 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 Was a procedure done?: No EKG EKG : Pulse Rate (adult): 93 [place]: Normal Cardiac Rhythm: NSR Block: None Hypertrophy: LAE ST: Normal Differential Dx Considerations may include: ACS, MO, generalized weakness X-Ray, Labs, Meds, VS Vital Signs Date Time Temp Pulse Resp B/P (MAP) Pulse Ox O2 Delivery O2 Flow Rate FiO2 09/11/24 12:00 83 09/11/24 11:00 80 10 107/68 (81) 97 09/11/24 10:49 80 10 107/68 09/11/24 10:19 81 17 112/68 09/11/24 09:47 83 09/11/24 08:02 98.5 89 14 111/70 (84) 96 98.5 09/11/24 08:02 89 14 96 Nasal Cannula* 2 28 09/11/24 08:00 91 09/11/24 07:53 87 09/11/24 07:07 93 09/11/24 07:00 93 09/11/24 06:51 99.4 95 18 109/74 (86) 94 Lab Test 09/11/24 10:08 09/11/24 09:50 09/11/24 07:49 09/11/24 07:04 Range/Units Urine Color Light-yellow Yellow Urine Clarity Clear Clear Urine pH 5.5 5.0-9.0 Urine Specific [place] 1.019 1.001-1.035 Urine Protein Negative Negative Urine Ketones Negative Negative Urine Blood Negative Negative /uL Urine Nitrite Negative Negative Urine Bilirubin Negative Negative Urine Urobilinogen Normal Negative mg/dL Urine Leukocyte Esterase Negative Negative /uL Urine RBC 1 0 - 3 /hpf Urine WBC 1 0 - 3 /hpf Urine Squamous Epithelial Cells None seen <5 /hpf Urine Bacteria None seen None Seen /hpf Urine Glucose Normal Normal mg/dL Troponin I High Sensitivity 3 L 3 L 3 L </=54 ng/L White Blood Count 4.5 4.4-10.8 10^3/uL Red Blood Count 4.43 L 4.5-5.90 10^6/uL Hemoglobin 14.1 13.5-17.5 g/dL Hematocrit 40.8 L 41.0-53.0 % Mean Corpuscular Volume 92.1 80.0-100.0 fL Mean Corpuscular Hemoglobin 31.9 28.0-32.0 pg Mean Corpuscular Hemoglobin Concent 34.7 32.0-36.0 g/dL Red Cell Distribution Width 14.6 H 11.8-14.3 % Platelet Count 172 140-450 10^3/uL Mean Platelet Volume 6.0 L 6.9-10.8 fL Neutrophils (%) (Auto) 77.7 37.0-80.0 % Lymphocytes (%) (Auto) 12.7 10.0-50.0 % Monocytes (%) (Auto) 9.0 0.0-12.0 % Eosinophils (%) (Auto) 0.3 0.0-7.0 % Basophils (%) (Auto) 0.3 0.0-2.0 % Neutrophils # (Auto) 3.5 1.6-8.6 10 ^3/uL Lymphocytes # (Auto) 0.6 0.4-5.4 10 ^3/uL Monocytes # (Auto) 0.4 0-1.3 10 ^3/uL Eosinophils # (Auto) 0 0-0.8 10 ^3/uL Basophils # (Auto) 0 0-0.2 10 ^3/uL Nucleated Red Blood Cells 0.1 % Sodium Level 133 L 136-145 mmol/L Potassium Level 3.9 3.5-5.1 mmol/L Chloride Level 101 98-107 mmol/L Carbon Dioxide Level 24 20-31 mmol/L Anion Gap 8 5-15 Blood Urea Nitrogen 22 9-23 mg/dL Creatinine 1.22 0.700-1.30 mg/dL Glomerular Filtration Rate Calc 65 >90 mL/min BUN/Creatinine Ratio 18.0 10.0-20.0 Serum Glucose 100 74-106 mg/dL Calcium Level 9.2 8.7-10.4 mg/dL Total Bilirubin 0.5 0.2-1.0 mg/dL Aspartate Amino Transferase (AST) 16 13-40 U/L Alanine Aminotransferase (ALT) 15 7-40 U/L Alkaline Phosphatase 66 46-116 U/L Total Protein 7.5 5.7-8.2 g/dL Albumin 4.7 3.2-4.8 g/dL Current Medications Medications (Trade) Dose Ordered Sig/Imani Route Start Time Stop Time Status Last Admin Morphine Sulfate 2 mg ONCE ONCE IV 09/11/24 10:00 09/11/24 10:01 DC 09/11/24 10:19 Ondansetron HCl (Zofran) 4 mg ONCE ONCE IV 09/11/24 10:00 09/11/24 10:01 DC 09/11/24 10:18 The patient was given morphine 2 mg IV push for the pain The patient was given Zofran 4 mg IV push for the nausea The urine test is negative The CBC and chemistry panel are within normal limits At this time, the patient was being admitted to the hospitalist The chest x-ray is negative. A cardiology consult will be obtained. Images Reviewed?: Images reviewed and evaluated by me Time of 1ST Reevaluation: 07:30 Reevaluation 1ST: Unchanged Patient Education/Counseling: Diagnosis, Treatment, Prognosis Family Education/Counseling: No Family Present Departure 1 Departure Time of Disposition: 12:15 Impression: Primary Impression: Acute myocardial ischemia Additional Impression: Acute chest pain Disposition: 09 ADMITTED INPATIENT Admit to: Tele Condition: Fair Critical Care Note Critical Care Time?: Yes (35 min-critical care time only) Stability Stability form required: Yes Unstable for transfer: Telemetry monitoring (Telemetry monitoring required), ED Physician Assesment (Clinical assesment) Heart Score Heart Score: Heart Score Response (Comments) Value History Moderate Suspicious 1 EKG Repolarization Disturb 1 Age >65 2 Risk Factors 1 or 2 risk factors 1 Troponin Normal limit 0 Total 5 I personally scribed for LEEROY PERKINS MD ([email or web address]) on 09/11/24 at 07:07. Electronically submitted by Omer Aponte ([email or web address]). LEEROY PERKINS MD Sep 11, 2024 07:07
[2024-09-11 07:25] LABS: Basophils # (auto) 0 10 ^3/uL (0-0.2); Basophils % (auto) 0.3 % (0.0-2.0); Eosinophils # (auto) 0 10 ^3/uL (0-0.8); Eosinophils % (auto) 0.3 % (0.0-7.0); Hematocrit 40.8 % (41.0-53.0); Hemoglobin 14.1 g/dL (13.5-17.5); Lymphocytes # (auto) 0.6 10 ^3/uL (0.4-5.4); Lymphocytes % (auto) 12.7 % (10.0-50.0); Mean Corpuscular Hemoglobin 31.9 pg (28.0-32.0); Mean Corpuscular Hgb Conc. 34.7 g/dL (32.0-36.0); Mean Corpuscular Volume 92.1 fL (80.0-100.0); Monocytes # (auto) 0.4 10 ^3/uL (0-1.3); Neutrophils # (auto) 3.5 10 ^3/uL (1.6-8.6); Neutrophils % (auto) 77.7 % (37.0-80.0); Nucleated Red Blood Cells % 0.1 %; Platelet Count (auto) 172 10^3/uL (140-450); Red Blood Cells 4.43 10^6/uL (4.5-5.90); Red Cell Distribution Width 14.6 % (11.8-14.3); White Blood Cell 4.5 10^3/uL (4.4-10.8)
[2024-09-11 07:41] LABS: Alanine Aminotransferase 15 U/L (7-40); Albumin 4.7 g/dL (3.2-4.8); Alkaline Phosphatase 66 U/L (46-116); Anion Gap 8 (5-15); Aspartate Aminotransferase 16 U/L (13-40); Blood Urea Nitrogen 22 mg/dL (9-23); Calcium 9.2 mg/dL (8.7-10.4); Carbon Dioxide 24 mmol/L (20-31); Chloride 101 mmol/L (98-107); Glucose 100 mg/dL (74-106); Potassium 3.9 mmol/L (3.5-5.1); Sodium 133 mmol/L (136-145)
[2024-09-11 07:42] LABS: Bilirubin, Total 0.5 mg/dL (0.2-1.0); Total Protein 7.5 g/dL (5.7-8.2)
[2024-09-11 08:02] VITALS: PULSE 89; RESP 14; O2SAT 96
--- NOTE | 2024-09-11 08:15 | DVH ---
EXAM: XY CHEST PORTABLE Indication: CP Technique: Single frontal view of the chest was obtained Comparison: None FINDINGS: Lines and Tubes: None Lungs: No focal consolidation. Pleura: No effusion. No pneumothorax. Cardiomediastinal contours: Unremarkable Bones: No acute osseous abnormality. IMPRESSION: No acute cardiopulmonary disease.
[2024-09-11] MEDS: ASPirin 81 mg TAB PO ONE (08:41)
--- NOTE | 2024-09-11 09:49 | ECG ---
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
--- NOTE | 2024-09-11 09:49 | ECG ---
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
[2024-09-11 10:15] LABS: Urine Bacteria None Seen /hpf (None Seen)
[2024-09-11] MEDS: ONDANSETRON HCL 4 MG/2 ML VIAL IV ONE (10:18)
[2024-09-11] MEDS: MORPHINE SULFATE INJ 2 MG/ml SYRG IV ONE (10:19)
[2024-09-11 10:29] LABS: Urine Blood Negative /uL (Negative); Urine Clarity Clear (Clear); Urine Color Light-Yellow (Yellow); Urine Protein, UAD Negative (Negative); Urine Specific Gravity 1.019 (1.001-1.035); Urine Urobilinogen Normal (Negative); Urine WBC 1 /hpf (0 - 3); Urine pH 5.5 (5.0-9.0)
[2024-09-11] MEDS ORDERED: NITROGLYCERIN 0.4 MG SL TAB SL PRN (13:30)
[2024-09-11] MEDS ORDERED: MORPHINE SULFATE INJ 2 MG/ml SYRG IV PRN (13:30)
[2024-09-11] MEDS ORDERED: MORPHINE SULFATE 4 MG/ML SYR/VIAL IV PRN (13:30)
[2024-09-11] MEDS ORDERED: DEXTROSE (50%) 50ML SYRG IV PRN (14:00)
--- NOTE | 2024-09-11 14:01 | DVHHP2 ---
History of Present Illness Reason for Visit: chest pain History of Present Illness 68-year-old with a past medical history CHF diabetes hypertension GERD shortness of breath comes to the ED with complaints of severe chest pain for the past two days worsening patient does state that he has a history of CHF and has been having trouble maintaining his breath initial thought process was CHF exacerbation patient was evaluated in the ED tropes were done to initiate and rule out acute coronary disease patient was recommended for continued evaluation and management Cardiovascular: CAD, CHF, HTN Pulmonary: COPD Review of Systems Constitutional: Yes: Weakness; No: Fever, Chills, Sweats, Malaise, Other Eyes: No: Pain, Vision change, Conjunctivae inflammation, Eyelid inflammation, Other, Redness ENT: No: Ear pain, Ear discharge, Nose pain, Nose discharge, Nose congestion, Mouth pain, Mouth swelling, Throat pain, Throat swelling, Other Respiratory: Shortness of breath, SOB with excertion; No: Cough, Dry, Wheezing, Hemoptysis, Pleuritic Pain, Sputum, Wheezing, Other Cardiovascular: Chest Pain, Palpitations; No: Orthopnea, Paroxysmal Noc. Dyspnea, Edema, Lt Headedness, Other Gastrointestinal: No: Nausea, Vomiting, Abdominal Pain, Diarrhea, Constipation, Melena, Hematochezia, Other Genitourinary: No Dysuria, No Frequency, No Incontinence, No Hematuria, No Retention, No Other Musculoskeletal: No: other, neck pain, shoulder pain, arm pain, back pain, hand pain, leg pain, foot pain Skin: No: Rash, Lesions, Jaundice, Bruising, Other Neurological: No: Weakness, Numbness, Incoordination, Change in speech, Confusion, Seizures, Other Allergies: Coded Allergies: Nitrofurantoin (Verified Allergy, Unknown, 01/26/20) Sulfa Antibiotics (Verified Allergy, Unknown, 01/18/20) Sulfamethoxazole w/Trimethoprim (Verified Allergy, Unknown, 01/26/20) Exam Vital Signs Vital Signs Date Time Temp Pulse Resp B/P (MAP) Pulse Ox O2 Delivery O2 Flow Rate FiO2 09/11/24 12:00 83 09/11/24 11:00 10 107/68 (81) 97 09/11/24 08:02 98.5 98.5 09/11/24 08:02 Nasal Cannula* 2 28 General Appearance: Alert, Oriented X3 HEENT: Atraumatic, PERRLA Respiratory: Clear to auscultation, Normal air movement Cardiovascular: Regular rate, Normal S1, Normal S2 Abdominal: Normal bowel sounds, Soft, No tenderness Extremities: No clubbing, No cyanosis, No edema Skin: No rashes, No breakdown, No significant lesion Neuro: Normal speech Psych/Mental Status: Mood NL Labs/Xrays Labs Test 09/11/24 10:08 09/11/24 09:50 09/11/24 07:04 Range/Units Urine Color Light-yellow Yellow Urine Clarity Clear Clear Urine pH 5.5 5.0-9.0 Urine Specific [place] 1.019 1.001-1.035 Urine Protein Negative Negative Urine Ketones Negative Negative Urine Blood Negative Negative /uL Urine Nitrite Negative Negative Urine Bilirubin Negative Negative Urine Urobilinogen Normal Negative mg/dL Urine Leukocyte Esterase Negative Negative /uL Urine RBC 1 0 - 3 /hpf Urine WBC 1 0 - 3 /hpf Urine Squamous Epithelial Cells None seen <5 /hpf Urine Bacteria None seen None Seen /hpf Urine Glucose Normal Normal mg/dL Troponin I High Sensitivity 3 L </=54 ng/L White Blood Count 4.5 4.4-10.8 10^3/uL Red Blood Count 4.43 L 4.5-5.90 10^6/uL Hemoglobin 14.1 13.5-17.5 g/dL Hematocrit 40.8 L 41.0-53.0 % Mean Corpuscular Volume 92.1 80.0-100.0 fL Mean Corpuscular Hemoglobin 31.9 28.0-32.0 pg Mean Corpuscular Hemoglobin Concent 34.7 32.0-36.0 g/dL Red Cell Distribution Width 14.6 H 11.8-14.3 % Platelet Count 172 140-450 10^3/uL Mean Platelet Volume 6.0 L 6.9-10.8 fL Neutrophils (%) (Auto) 77.7 37.0-80.0 % Lymphocytes (%) (Auto) 12.7 10.0-50.0 % Monocytes (%) (Auto) 9.0 0.0-12.0 % Eosinophils (%) (Auto) 0.3 0.0-7.0 % Basophils (%) (Auto) 0.3 0.0-2.0 % Neutrophils # (Auto) 3.5 1.6-8.6 10 ^3/uL Lymphocytes # (Auto) 0.6 0.4-5.4 10 ^3/uL Monocytes # (Auto) 0.4 0-1.3 10 ^3/uL Eosinophils # (Auto) 0 0-0.8 10 ^3/uL Basophils # (Auto) 0 0-0.2 10 ^3/uL Nucleated Red Blood Cells 0.1 % Sodium Level 133 L 136-145 mmol/L Potassium Level 3.9 3.5-5.1 mmol/L Chloride Level 101 98-107 mmol/L Carbon Dioxide Level 24 20-31 mmol/L Anion Gap 8 5-15 Blood Urea Nitrogen 22 9-23 mg/dL Creatinine 1.22 0.700-1.30 mg/dL Glomerular Filtration Rate Calc 65 >90 mL/min BUN/Creatinine Ratio 18.0 10.0-20.0 Serum Glucose 100 74-106 mg/dL Calcium Level 9.2 8.7-10.4 mg/dL Total Bilirubin 0.5 0.2-1.0 mg/dL Aspartate Amino Transferase (AST) 16 13-40 U/L Alanine Aminotransferase (ALT) 15 7-40 U/L Alkaline Phosphatase 66 46-116 U/L Total Protein 7.5 5.7-8.2 g/dL Albumin 4.7 3.2-4.8 g/dL Assessment/Plan Assessment/Plan Admit Med/Surg Chest Pain Shortness of breath History CHF History HTN Shortness or breath Prn breathing treatments chest pain protocol Plan discussed with: Patient My Orders Orders - FELIPA SOTO MD Procedure Category Date Status Time Covid19 Antigen Dalia LAB 09/11/24 Logged Rapid Influenza A&B LAB 09/11/24 Logged 13:23 Admit ADMIT 09/11/24 Transmitted 13:29 Code Status CODE 09/11/24 Transmitted 13:29 Advertising Job Titles MICHAEL 09/11/24 In Process 13:29 Cardiac DIET 09/11/24 Transmitted Diet-2gna,Lofat,Lochol Lunch Sodium Chloride 0.9% PHA 09/11/24 Logged 13:30 Aspirin Tablet PHA 09/12/24 Logged 10:00 Clopidogrel Bisulfate PHA 09/12/24 Logged (Plavix) 10:00 Atorvastatin (Lipitor) PHA 09/11/24 Logged 22:00 Metoprolol Tartrate PHA 11/18/24 Logged Tablet (Lopressor Ta 22:00 Morphine Sulfate PHA 09/11/24 Logged Injection 13:30 Acetaminophen Tablet PHA 09/11/24 Logged (Tylenol Tablet) 13:30 Zolpidem Tartrate PHA 09/11/24 Logged (Ambien) 13:30 Lorazepam Tablet PHA 09/11/24 Logged (Ativan Tablet) 13:30 Docusate Sodium PHA 09/12/24 Logged Capsule (Colace 10:00 Complete Blood Count LAB 09/12/24 Verified 04:00 Basic Metabolic Panel LAB 09/12/24 Verified 04:00 Echo 2d Mode Cardiac US 09/11/24 Logged DOP 13:29 Enoxaparin Sodium PHA 09/11/24 Logged (Lovenox) 22:00 Ondansetron Hcl PHA 09/11/24 Logged (Zofran) 13:30 Electrocardigram EKG 09/11/24 Logged 13:29 Alum & Mag PHA 09/11/24 Logged Hydrox-Simethicone 13:30 Troponin-I Hs LAB 09/11/24 Logged 13:29 Lisinopril Tablet PHA 09/12/24 Logged (Zestril Tablet) 10:00 Cardiac MICHAEL 09/11/24 In Process Rehabilitation - Outpa Nitroglycerin PHA 09/11/24 Logged Sublingual (Ntrostat 13:30 Morphine Sulfate PHA 09/11/24 Logged Injection 13:30 Stat Ekg For Chest MICHAEL 09/11/24 In Process Pain 13:29 Notify Md Of Changes MICHAEL 09/11/24 In Process From Base 13:29 Solid Waste Technician For MICHAEL 09/11/24 In Process 24 Hours 13:29 Emergency Dysrhythmia MICHAEL 09/11/24 In Process Protocol 13:29 Rhythm Strips Once MICHAEL 09/11/24 In Process Every Shift 13:29 Oxygen By Nasal RT 09/11/24 Transmitted Cannula 13:29 Glucose Blood PHA 09/11/24 Transmitted (Accu-Chek Comfort 16:00 Mild Sliding Scale PHA 09/11/24 Transmitted 16:00 Dextrose 50% Syringe PHA 09/11/24 Transmitted 14:00 Pantoprazole Tablet PHA 09/12/24 Transmitted (Protonix Tablet) 10:00 Tamsulosin PHA 09/12/24 Transmitted Hydrochloride (Flomax) 10:00 Problem List: (1) Acute chest pain (2) Acute myocardial ischemia (3) Abdominal pain of unknown etiology (4) Abdominal pain Date of Service: Sep 11, 2024 Billing Provider: FELIPA SOTO MD Common Visit Codes: [id number] INP/OBS CARE (HIGH) FELIPA SOTO MD Sep 11, 2024 14:01
[2024-09-11] MEDS: MAALOX PLUS or MAALOX 30 ML PO ONE (14:12)
[2024-09-11] MEDS: SODIUM CHLORIDE 0.9% 1,000 ML IV SCH (14:12)
[2024-09-11] MEDS: LACTULOSE 20Gm/30ML SOLN PO ONE (14:32)
[2024-09-11] MEDS: ACETAMINOPHEN 325 MG TAB PO PRN (14:48)
[2024-09-11 15:11] LABS: Rapid Influenza A Negative (Negative); Rapid Influenza B Negative (Negative)
[2024-09-11 15:12] LABS: COVID19 ANTIGEN SOFIA FIA NEGATIVE (NEGATIVE)
[2024-09-11] MEDS: InsuLIN REG 1unit/0.01ml Soln (100units/ml) SC SCH (16:00)
[2024-09-11] MEDS: ACCU-CHEK COMFORT CURVE STRIP VI SCH (16:19)
--- NOTE | 2024-09-11 16:24 | DVHSR ---
APPROVED REPORT EXAM: Two-dimensional and M-mode echocardiogram with Doppler and color Doppler. Blood Pressure: 104/64 mmHg INDICATION Chest Pain RISK FACTORS Height: 5'8", Weight: 182 DIMENSIONS LVDd4.9 (3.8-5.7cm)LA (2D)3.7 (1.9-4.0cm)Aortic Root3.7 (2.0-3.7cm) LVDs3.5 (2.5-4.0cm)LA (MM) (1.9-4.0cm)Aortic Cusp Exc1.8 (1.5-2.0cm) EF (%) 55.0 (55-70%)Rt. Atrium (1.9-4.0cm)Asc. Aorta cm IVSd0.8 (0.7-1.1cm)RV (D) (1.8-2.4cm) PWd0.9 (0.7-1.1cm) Mitral Valve MitralMitral Stenosis E wave0.64m/sMV Mean GR.mmHg A wave0.73m/sMV Peak GR.mmHg E/A ratio0.92D MVAcm2 DECEL [id number] 1/2 Timems Aortic Valve Aortic ValveAortic Stenosis V10.94m/Ellie Mean GR.2mmHg V21.06m/Ellie Peak GR.4mmHg LVOT Diameter2.3 (1.8-2.4cm)Doppler AVA3.68cm2 Pulmonic Valve V20.85m/s Other Information Technically limited study due to body habitus. Conclusion Normal left ventricular size and dimension. Normal left ventricular systolic function estimated ejec tion fraction 55%. There is a grade 1 diastolic dysfunction. Normal right ventricular size and dimension. Normal right ventricular systolic function. Normal biatrial size and dimension. Normal aortic valve structure and function. Normal mitral valve structure function. Normal tricuspid structure and function. The pulmonary valve is grossly normal. No pericardial effusion
[2024-09-11 19:30] VITALS: PULSE 85; RESP 14; O2SAT 96
[2024-09-11] MEDS: ONDANSETRON HCL 4 MG/2 ML VIAL IV PRN (21:01)
[2024-09-11] MEDS: ATORVASTATIN 20 MG TAB PO SCH (22:18)
[2024-09-11] MEDS: METOPROLOL TARTRATE 25 MG TAB PO SCH (22:19)
[2024-09-11] MEDS: ENOXAPARIN SOD 80 MG/0.8ML SYRINGE SC SCH (22:20)
[2024-09-12] MEDS: ZOLPIDEM TARTRATE 5 MG TAB PO PRN (00:28)
[2024-09-12 04:43] LABS: Chloride 104 mmol/L (98-107); Potassium 3.8 mmol/L (3.5-5.1); Sodium 134 mmol/L (136-145)
[2024-09-12 04:44] LABS: Anion Gap 6 (5-15); Carbon Dioxide 24 mmol/L (20-31)
[2024-09-12 04:46] LABS: Basophils # (auto) 0 10 ^3/uL (0-0.2); Basophils % (auto) 0.4 % (0.0-2.0); Eosinophils # (auto) 0.1 10 ^3/uL (0-0.8); Eosinophils % (auto) 1.4 % (0.0-7.0); Hematocrit 36.4 % (41.0-53.0); Hemoglobin 12.8 g/dL (13.5-17.5); Lymphocytes # (auto) 0.9 10 ^3/uL (0.4-5.4); Lymphocytes % (auto) 16.5 % (10.0-50.0); Mean Corpuscular Hemoglobin 32.1 pg (28.0-32.0); Mean Corpuscular Hgb Conc. 35.1 g/dL (32.0-36.0); Mean Corpuscular Volume 91.4 fL (80.0-100.0); Monocytes # (auto) 0.6 10 ^3/uL (0-1.3); Monocytes % (auto) 10.9 % (0.0-12.0); Neutrophils # (auto) 3.7 10 ^3/uL (1.6-8.6); Neutrophils % (auto) 70.8 % (37.0-80.0); Platelet Count (auto) 168 10^3/uL (140-450); Red Blood Cells 3.98 10^6/uL (4.5-5.90); White Blood Cell 5.2 10^3/uL (4.4-10.8)
[2024-09-12 04:49] LABS: BUN/Creatinine Ratio 18.4 (10.0-20.0); Blood Urea Nitrogen 18 mg/dL (9-23); Glucose 92 mg/dL (74-106)
[2024-09-12 07:30] VITALS: PULSE 70; RESP 14; O2SAT 97
[2024-09-12] MEDS: TAMSULOSIN HYDROCHLORIDE 0.4 MG CAP PO SCH (10:27)
[2024-09-12] MEDS: ASPirin 81 mg TAB PO SCH (10:27)
[2024-09-12] MEDS: DOCUSATE SOD 100 MG CAP PO SCH (10:27)
[2024-09-12] MEDS: CLOPIDOGREL BISULFATE 75 MG TAB PO SCH (10:28)
[2024-09-12] MEDS: PANTOPRAZOLE 40 MG TAB PO SCH (10:28)
[2024-09-12] MEDS: LISINOPRIL 5 MG TAB PO SCH (10:29)
[2024-09-12] MEDS ORDERED: ONDANSETRON HCL 4 MG/2 ML VIAL IV PRN (11:45)
[2024-09-12] MEDS: HYDROcodone-ACET 5/325MG TAB PO PRN (11:57)
--- NOTE | 2024-09-12 14:40 | DVHPN2 ---
Subjective Patient reports having multiple bouts of diarrhea and abdominal distention. Reviewed: Care Plan, H&P, Labs, Medications Changes from previous H/P or p: No Changes Eyes: No Pain, No Vision change, No Conjunctivae inflammation, No Eyelid inflammation, No Other, No Redness ENT: No Ear pain, No Ear discharge, No Nose pain, No Nose discharge, No Nose congestion, No Mouth pain, No Mouth swelling, No Throat pain, No Throat swelling, No Other Cardiovascular: Chest Pain, Palpitations; No Orthopnea, No Paroxysmal Noc. Dyspnea, No Edema, No Lt Headedness, No Other Respiratory: No Cough, No Dry; Shortness of breath, SOB with excertion; No Wheezing, No Hemoptysis, No Pleuritic Pain, No Sputum, No Other Gastrointestinal: No Nausea, No Vomiting, No Abdominal Pain, No Diarrhea, No Constipation, No Melena, No Hematochezia, No Other Genitourinary: No Dysuria, No Frequency, No Incontinence, No Hematuria, No Retention, No Other Musculoskeletal: No other, No neck pain, No shoulder pain, No arm pain, No back pain, No hand pain, No leg pain, No foot pain Skin: No Rash, No Lesions, No Jaundice, No Bruising, No Other Objective Vitals Vital Signs Date Time Temp Pulse Resp B/P (MAP) Pulse Ox O2 Delivery O2 Flow Rate FiO2 09/12/24 14:00 80 16 116/70 (85) 95 09/12/24 07:30 Nasal Cannula* 2 28 09/11/24 19:30 98.1 98.1 Intake/Output Intake and Output 09/12/24 07:00 Intake Total 900 ml Balance 900 ml Intake IV Total 900 ml General Appearance: Alert, Oriented X3, Cooperative, No acute distress HEENT: Atraumatic, PERRLA Lungs: Clear to auscultation, Normal air movement Cardiovascular: Normal S1, Normal S2 Abdomen: Normal bowel sounds, Soft, Other (Distended) Musculoskeletal: Normal sensory function, Normal motor function Neuro: Normal gait, Normal speech Psych/Mental Status: Mental status NL, Mood NL Medications Current Medications Medications Dose Ordered Sig/Imani Route Start Time Stop Time Status Last Admin Dose Admin Sodium Chloride 1,000 ml @ 75 mls/hr [id number] IV 09/11/24 13:30 09/11/24 14:12 75 MLS/HR Aspirin 81 mg DAILY PO 09/12/24 10:00 09/12/24 10:27 81 MG Clopidogrel Bisulfate 75 mg DAILY PO 09/12/24 10:00 09/12/24 10:28 75 MG Atorvastatin Calcium 40 mg HS PO 09/11/24 22:00 09/11/24 22:18 40 MG Metoprolol Tartrate 25 mg Q12HR PO 09/11/24 22:00 09/12/24 10:28 25 MG Zolpidem Tartrate 5 mg QHSP PRN PO 09/11/24 22:00 09/12/24 00:28 5 MG Lorazepam 0.5 mg Q6HP PRN PO 09/11/24 13:30 Docusate Sodium 100 mg DAILY PO 09/12/24 10:00 09/12/24 10:27 100 MG Enoxaparin Sodium 80 mg Q12HR SC 09/11/24 22:00 09/12/24 10:29 80 MG Lisinopril 10 mg DAILY PO 09/12/24 10:00 09/12/24 10:29 10 MG Nitroglycerin 0.4 mg Q5MINP PRN SL 09/11/24 13:30 Morphine Sulfate 2 mg Q30M PRN IV 09/11/24 13:30 Diagnostic Test (Pha) 1 strip IQ4HR 09/11/24 16:00 09/12/24 11:47 1 STRIP Insulin Human Regular IQ4HR SC 09/11/24 16:00 Dextrose 50 ml UD PRN IV 09/11/24 14:00 Pantoprazole Sodium 40 mg DAILY PO 09/12/24 10:00 09/12/24 10:28 40 MG Tamsulosin HCl 0.4 mg DAILY PO 09/12/24 10:00 09/12/24 10:27 0.4 MG Acetaminophen/ Hydrocodone Bitart 1 tab Q6HPRN PRN PO 09/12/24 11:45 09/12/24 11:57 1 TAB Acetaminophen 500 mg Q8HP PRN PO 09/12/24 11:45 Ondansetron HCl 4 mg Q6HP PRN IV 09/12/24 11:45 Laboratory Results Laboratory Tests 09/12/24 04:17 Chemistry Test 09/12/24 04:17 Calcium Level 9.0 mg/dL (8.7-10.4) Urinalysis Test 09/11/24 10:08 Urine Color Light-yellow (Yellow) Urine Clarity Clear (Clear) Urine pH 5.5 (5.0-9.0) Urine Specific [place] 1.019 (1.001-1.035) Urine Protein Negative (Negative) Urine Ketones Negative (Negative) Urine Blood Negative /uL (Negative) Urine Nitrite Negative (Negative) Urine Bilirubin Negative (Negative) Urine Urobilinogen Normal mg/dL (Negative) Urine Leukocyte Esterase Negative /uL (Negative) Urine RBC 1 /hpf (0 - 3) Urine WBC 1 /hpf (0 - 3) Urine Squamous Epithelial Cells None seen /hpf (<5) Urine Bacteria None seen /hpf (None Seen) Urine Glucose Normal mg/dL (Normal) Labs and/or images reviewed: Labs reviewed by me, Image(s) reviewed by me Assessment/Plan Assessment/Plan Impression: -rule out ACS -history of coronary artery disease -diarrhea -rule out gastroenteritis, abdominal pain -COPD -hypertension -rule out GI bleed Plan: -troponins negative. EKG with no ST changes. Normal sinus rhythm -patient reports having multiple bouts of diarrhea and abdominal distention. Also reports having black emesis prior to coming to the hospital. Noted drop in H&H. -stool for FOBT , stool culture -PPI -stop Lovenox -continue dual antiplatelet therapy at this time -bronchodilators p.r.n. -start Flagyl 500 mg p.o. q.8 hours -repeat labs in a.m. Total time spent with patient discussing and formulating plan of care: 35 minutes. This medical document was created using an electronic medical record system with [employer] dictation system. Although this document has been carefully reviewed, there may still be some phonetic and typographical errors. These areas are purely typographical due to imperfections of the software programs, and do not reflect any compromise in the patient's medical care. Plan discussed with: Patient, Other (RN) My Orders Orders - SUMAN RAMOS ACCOUNTING BOOKKEEPER Procedure Category Date Status Time Hydrocodone-Acet PHA 09/12/24 In Process 5/325mg Tab ([place] 11:45 Acetaminophen Tablet PHA 09/12/24 In Process (Tylenol Tablet) 11:45 Ondansetron Hcl PHA 09/12/24 In Process (Zofran) 11:45 Date of Service: Sep 12, 2024 Billing Provider: SUMAN RAMOS NP Common Visit Codes: [id number] INP/OBS CARE(HIGH) SUMAN RAMOS NP Sep 12, 2024 14:39
[2024-09-12] MEDS ORDERED: DEXTROSE (50%) 50ML SYRG IV PRN (14:45)
[2024-09-12] MEDS: metroNIDAZOLE 500MG/100ML 100 ML IV ONE (15:27)
--- NOTE | 2024-09-12 16:14 | DVH ---
Exam: XY KUB ABDOMEN SINGLE VIEW Indication: Abdominal distention. Diarrhea Comparison: None Technique: 1 radiographic views of the abdomen. Findings: Nonspecific bowel-gas pattern. Diffuse air-filled distention of small and large bowel loops. There is no definite evidence for pneumoperitoneum. No abnormal calcifications noted. Impression: Nonspecific nonobstructive bowel-gas pattern.
[2024-09-12] MEDS: InsuLIN REG 1unit/0.01ml Soln (100units/ml) SC SCH (17:00)
[2024-09-12] MEDS: ACCU-CHEK COMFORT CURVE STRIP VI SCH (17:02)
[2024-09-12 20:57] VITALS: PULSE 69; RESP 14; O2SAT 94
[2024-09-12 22:21] VITALS: BP 111/68; PULSE 70; RESP 20; TEMP 98.6; O2SAT 96
[2024-09-12 22:52] VITALS: BP 111/68; PULSE 70; RESP 20; TEMP 98.6; O2SAT 96
[2024-09-12] MEDS: metroNIDAZOLE 500MG/100ML 100 ML IV SCH (22:53)
[2024-09-12] MEDS: ACETAMINOPHEN 500 MG TAB PO PRN (23:26)
[2024-09-13] VITALS (8 sets, daily range): BP systolic 108–126; BP diastolic 59–67; PULSE 51–69; RESP 16–19; TEMP 98.3–98.7; O2SAT 95–99
[2024-09-13] MEDS ORDERED: QUET50TA PO (00:35)
[2024-09-13] MEDS ORDERED: LORA-1123 PO (00:35)
[2024-09-13] MEDS ORDERED: SERT50TA PO (00:35)
[2024-09-13] MEDS ORDERED: OXCA150T61 (00:35)
[2024-09-13] MEDS ORDERED: TERA5CAP60 PO (00:35)
[2024-09-13] MEDS ORDERED: IBUP-1456 PO (00:35)
[2024-09-13] MEDS ORDERED: SPIR25TA8 PO (00:35)
[2024-09-13] MEDS ORDERED: SUCR1SUS26 (00:35)
[2024-09-13 05:54] LABS: Basophils # (auto) 0 10 ^3/uL (0-0.2); Basophils % (auto) 0.4 % (0.0-2.0); Eosinophils # (auto) 0.1 10 ^3/uL (0-0.8); Eosinophils % (auto) 1.4 % (0.0-7.0); Hematocrit 34.1 % (41.0-53.0); Lymphocytes # (auto) 0.9 10 ^3/uL (0.4-5.4); Lymphocytes % (auto) 18.2 % (10.0-50.0); Mean Corpuscular Hemoglobin 31.8 pg (28.0-32.0); Mean Corpuscular Hgb Conc. 35.2 g/dL (32.0-36.0); Mean Corpuscular Volume 90.3 fL (80.0-100.0); Monocytes # (auto) 0.5 10 ^3/uL (0-1.3); Monocytes % (auto) 10.1 % (0.0-12.0); Neutrophils # (auto) 3.4 10 ^3/uL (1.6-8.6); Neutrophils % (auto) 69.9 % (37.0-80.0); Nucleated Red Blood Cells % 0.1 %; Platelet Count (auto) 165 10^3/uL (140-450); Red Blood Cells 3.78 10^6/uL (4.5-5.90); Red Cell Distribution Width 13.8 % (11.8-14.3); White Blood Cell 4.8 10^3/uL (4.4-10.8)
[2024-09-13 06:08] LABS: Anion Gap 6 (5-15); Carbon Dioxide 25 mmol/L (20-31); Chloride 105 mmol/L (98-107); Potassium 3.5 mmol/L (3.5-5.1); Sodium 136 mmol/L (136-145)
[2024-09-13 06:09] LABS: Calcium 8.8 mg/dL (8.7-10.4)
[2024-09-13 06:14] LABS: BUN/Creatinine Ratio 17.1 (10.0-20.0); Blood Urea Nitrogen 13 mg/dL (9-23); Glucose 102 mg/dL (74-106)
--- NOTE | 2024-09-13 10:48 | DVHPN2 ---
Subjective Patient reports having lightheadedness, two bouts of diarrhea today. Reviewed: Care Plan, H&P, Labs, Medications Changes from previous H/P or p: Changes Eyes: No Pain, No Vision change, No Conjunctivae inflammation, No Eyelid inflammation, No Other, No Redness ENT: No Ear pain, No Ear discharge, No Nose pain, No Nose discharge, No Nose congestion, No Mouth pain, No Mouth swelling, No Throat pain, No Throat swelling, No Other Cardiovascular: Chest Pain, Palpitations; No Orthopnea, No Paroxysmal Noc. Dyspnea, No Edema, No Lt Headedness, No Other Respiratory: No Cough, No Dry; Shortness of breath, SOB with excertion; No Wheezing, No Hemoptysis, No Pleuritic Pain, No Sputum, No Other Gastrointestinal: No Nausea, No Vomiting, No Abdominal Pain, No Diarrhea, No Constipation, No Melena, No Hematochezia, No Other Genitourinary: No Dysuria, No Frequency, No Incontinence, No Hematuria, No Retention, No Other Musculoskeletal: No other, No neck pain, No shoulder pain, No arm pain, No back pain, No hand pain, No leg pain, No foot pain Skin: No Rash, No Lesions, No Jaundice, No Bruising, No Other Objective Vitals Vital Signs Date Time Temp Pulse Resp B/P (MAP) Pulse Ox O2 Delivery O2 Flow Rate FiO2 09/13/24 09:07 62 115/59 09/13/24 08:53 98.5 19 98 98.5 09/12/24 22:52 Room Air* 0 21 Intake/Output Intake and Output 09/13/24 07:00 Intake Total 1350 ml Output Total 800 ml Balance 550 ml Intake Oral 300 ml IV Total 1050 ml Output Urine Total 800 ml General Appearance: Alert, Oriented X3, Cooperative, No acute distress HEENT: Atraumatic, PERRLA Lungs: Clear to auscultation, Normal air movement Cardiovascular: Normal S1, Normal S2 Abdomen: Normal bowel sounds, Soft, Other (Distended) Musculoskeletal: Normal sensory function, Normal motor function Neuro: Normal gait, Normal speech Psych/Mental Status: Mental status NL, Mood NL Medications Current Medications Medications Dose Ordered Sig/Imani Route Start Time Stop Time Status Last Admin Dose Admin Sodium Chloride 1,000 ml @ 75 mls/hr [id number] IV 09/11/24 13:30 09/12/24 15:20 75 MLS/HR Aspirin 81 mg DAILY PO 09/12/24 10:00 09/12/24 10:27 81 MG Clopidogrel Bisulfate 75 mg DAILY PO 09/12/24 10:00 09/13/24 09:06 75 MG Atorvastatin Calcium 40 mg HS PO 09/11/24 22:00 09/11/24 22:18 40 MG Metoprolol Tartrate 25 mg Q12HR PO 09/11/24 22:00 09/13/24 09:07 25 MG Zolpidem Tartrate 5 mg QHSP PRN PO 09/11/24 22:00 09/12/24 22:54 5 MG Lorazepam 0.5 mg Q6HP PRN PO 09/11/24 13:30 Docusate Sodium 100 mg DAILY PO 09/12/24 10:00 09/12/24 10:27 100 MG Lisinopril 10 mg DAILY PO 09/12/24 10:00 09/13/24 09:06 10 MG Nitroglycerin 0.4 mg Q5MINP PRN SL 09/11/24 13:30 Morphine Sulfate 2 mg Q30M PRN IV 09/11/24 13:30 Pantoprazole Sodium 40 mg DAILY PO 09/12/24 10:00 09/12/24 10:28 40 MG Tamsulosin HCl 0.4 mg DAILY PO 09/12/24 10:00 09/12/24 10:27 0.4 MG Acetaminophen/ Hydrocodone Bitart 1 tab Q6HPRN PRN PO 09/12/24 11:45 09/12/24 11:57 1 TAB Acetaminophen 500 mg Q8HP PRN PO 09/12/24 11:45 09/12/24 23:26 500 MG Ondansetron HCl 4 mg Q6HP PRN IV 09/12/24 11:45 Diagnostic Test (Pha) 1 strip ACHS 09/12/24 17:00 09/13/24 06:11 1 STRIP Insulin Human Regular ACHS SC 09/12/24 17:00 Dextrose 50 ml UD PRN IV 09/12/24 14:45 Metronidazole 100 ml @ 100 mls/hr Q8HR IV 09/12/24 22:00 09/13/24 05:59 100 MLS/HR Laboratory Results Laboratory Tests 09/13/24 05:23 Chemistry Test 09/13/24 05:23 Calcium Level 8.8 mg/dL (8.7-10.4) Urinalysis Test 09/11/24 10:08 Urine Color Light-yellow (Yellow) Urine Clarity Clear (Clear) Urine pH 5.5 (5.0-9.0) Urine Specific [place] 1.019 (1.001-1.035) Urine Protein Negative (Negative) Urine Ketones Negative (Negative) Urine Blood Negative /uL (Negative) Urine Nitrite Negative (Negative) Urine Bilirubin Negative (Negative) Urine Urobilinogen Normal mg/dL (Negative) Urine Leukocyte Esterase Negative /uL (Negative) Urine RBC 1 /hpf (0 - 3) Urine WBC 1 /hpf (0 - 3) Urine Squamous Epithelial Cells None seen /hpf (<5) Urine Bacteria None seen /hpf (None Seen) Urine Glucose Normal mg/dL (Normal) Microbiology Microbiology Date/Time Source Procedure Growth Status 09/12/24 20:54 Stool Stool Culture - Preliminary Resulted 09/12/24 20:54 Stool Shiga Toxin I & II Pending Resulted Labs and/or images reviewed: Labs reviewed by me, Image(s) reviewed by me Assessment/Plan Assessment/Plan Impression: -rule out ACS -history of coronary artery disease -diarrhea -rule out gastroenteritis, abdominal pain -COPD -hypertension -rule out GI bleed Plan: Events: Continues to have diarrhea, lightheadedness. Labs benign -FOBT negative. Stool culture pending -PPI -continue dual antiplatelet therapy at this time -bronchodilators p.r.n. -continue Flagyl 500 mg p.o. q.8 hours -potassium replacement Total time spent with patient discussing and formulating plan of care: 35 minutes. This medical document was created using an electronic medical record system with [employer] dictation system. Although this document has been carefully reviewed, there may still be some phonetic and typographical errors. These areas are purely typographical due to imperfections of the software programs, and do not reflect any compromise in the patient's medical care. Plan discussed with: Patient, Other (RN) My Orders Orders - SUMAN RAMOS LOGGING SUPERINTENDENT Procedure Category Date Status Time Hydrocodone-Acet PHA 09/12/24 In Process 5/325mg Tab ([place] 11:45 Acetaminophen Tablet PHA 09/12/24 In Process (Tylenol Tablet) 11:45 Ondansetron Hcl PHA 09/12/24 In Process (Zofran) 11:45 Kub Abdomen Single XY 09/12/24 Resulted View 14:33 Stool Bacterial ADRIEL 09/12/24 In Process Culture 14:33 Glucose Blood PHA 09/12/24 In Process (Accu-Chek Comfort 17:00 Insulin R (Human) PHA 09/12/24 In Process (Insulin R) 17:00 Dextrose 50% Syringe PHA 09/12/24 In Process 14:45 Metronidazole PHA 09/12/24 In Process 500mg/100ml (Flagyl 22:00 Mrsa Screen ADRIEL 09/13/24 In Process 05:16 Date of Service: Sep 13, 2024 Billing Provider: SUMAN RAMSO NP Common Visit Codes: [id number] INP/OBS CARE(HIGH) SUMAN RAMOS NP Sep 13, 2024 10:48
[2024-09-13] MEDS: POTASSIUM CHL 10 Meq TABLET PO ONE (11:55)
[2024-09-13] MEDS: BACITRACIN TOP OINT 1 UD PKG TOP SCH (21:36)
[2024-09-14] VITALS (11 sets, daily range): BP systolic 115–131; BP diastolic 49–71; PULSE 60–69; RESP 16–19; TEMP 97.2–98.9; O2SAT 97–99
[2024-09-14] MEDS: LORazepam 0.5 MG TAB PO PRN (12:04)
--- NOTE | 2024-09-14 15:50 | DVHPN2 ---
Subjective Patient reports having lightheadedness, two bouts of diarrhea today. Reviewed: Care Plan, H&P, Labs, Medications Changes from previous H/P or p: No Changes Eyes: No Pain, No Vision change, No Conjunctivae inflammation, No Eyelid inflammation, No Other, No Redness ENT: No Ear pain, No Ear discharge, No Nose pain, No Nose discharge, No Nose congestion, No Mouth pain, No Mouth swelling, No Throat pain, No Throat swelling, No Other Cardiovascular: Chest Pain, Palpitations; No Orthopnea, No Paroxysmal Noc. Dyspnea, No Edema, No Lt Headedness, No Other Respiratory: No Cough, No Dry; Shortness of breath, SOB with excertion; No Wheezing, No Hemoptysis, No Pleuritic Pain, No Sputum, No Other Gastrointestinal: No Nausea, No Vomiting, No Abdominal Pain, No Diarrhea, No Constipation, No Melena, No Hematochezia, No Other Genitourinary: No Dysuria, No Frequency, No Incontinence, No Hematuria, No Retention, No Other Musculoskeletal: No other, No neck pain, No shoulder pain, No arm pain, No back pain, No hand pain, No leg pain, No foot pain Skin: No Rash, No Lesions, No Jaundice, No Bruising, No Other Objective Vitals Vital Signs Date Time Temp Pulse Resp B/P (MAP) Pulse Ox O2 Delivery O2 Flow Rate FiO2 09/14/24 13:34 97.4 69 18 131/71 (91) 98 97.4 09/14/24 08:00 Room Air* 0 21 Intake/Output Intake and Output 09/14/24 07:00 Intake Total 1720 ml Output Total 1350 ml Balance 370 ml Intake Oral 845 ml IV Total 875 ml Output Urine Total 1350 ml # Bowel Movements 3 General Appearance: Alert, Oriented X3, Cooperative, No acute distress HEENT: Atraumatic, PERRLA Lungs: Clear to auscultation, Normal air movement Cardiovascular: Normal S1, Normal S2 Abdomen: Normal bowel sounds, Soft, Other (Distended) Musculoskeletal: Normal sensory function, Normal motor function Neuro: Normal gait, Normal speech Psych/Mental Status: Mental status NL, Mood NL Medications Current Medications Medications Dose Ordered Sig/Imani Route Start Time Stop Time Status Last Admin Dose Admin Sodium Chloride 1,000 ml @ 75 mls/hr [id number] IV 09/11/24 13:30 09/14/24 05:45 75 MLS/HR Aspirin 81 mg DAILY PO 09/12/24 10:00 09/14/24 11:50 81 MG Clopidogrel Bisulfate 75 mg DAILY PO 09/12/24 10:00 09/14/24 11:50 75 MG Atorvastatin Calcium 40 mg HS PO 09/11/24 22:00 09/13/24 21:37 40 MG Metoprolol Tartrate 25 mg Q12HR PO 09/11/24 22:00 09/13/24 21:36 25 MG Zolpidem Tartrate 5 mg QHSP PRN PO 09/11/24 22:00 09/13/24 21:49 5 MG Lorazepam 0.5 mg Q6HP PRN PO 09/11/24 13:30 09/14/24 12:04 0.5 MG Docusate Sodium 100 mg DAILY PO 09/12/24 10:00 09/12/24 10:27 100 MG Lisinopril 10 mg DAILY PO 09/12/24 10:00 09/13/24 09:06 10 MG Nitroglycerin 0.4 mg Q5MINP PRN SL 09/11/24 13:30 Morphine Sulfate 2 mg Q30M PRN IV 09/11/24 13:30 Pantoprazole Sodium 40 mg DAILY PO 09/12/24 10:00 09/14/24 11:49 40 MG Tamsulosin HCl 0.4 mg DAILY PO 09/12/24 10:00 09/12/24 10:27 0.4 MG Acetaminophen/ Hydrocodone Bitart 1 tab Q6HPRN PRN PO 09/12/24 11:45 09/14/24 15:08 1 TAB Acetaminophen 500 mg Q8HP PRN PO 09/12/24 11:45 09/13/24 11:56 500 MG Ondansetron HCl 4 mg Q6HP PRN IV 09/12/24 11:45 Diagnostic Test (Pha) 1 strip ACHS 09/12/24 17:00 09/14/24 07:25 1 STRIP Insulin Human Regular ACHS SC 09/12/24 17:00 Dextrose 50 ml UD PRN IV 09/12/24 14:45 Metronidazole 100 ml @ 100 mls/hr Q8HR IV 09/12/24 22:00 09/14/24 15:07 100 MLS/HR Bacitracin 1 applic BID TOP 09/13/24 22:00 09/14/24 11:50 1 APPLIC Laboratory Results Laboratory Tests 09/13/24 05:23 Urinalysis Test 09/11/24 10:08 Urine Color Light-yellow (Yellow) Urine Clarity Clear (Clear) Urine pH 5.5 (5.0-9.0) Urine Specific [place] 1.019 (1.001-1.035) Urine Protein Negative (Negative) Urine Ketones Negative (Negative) Urine Blood Negative /uL (Negative) Urine Nitrite Negative (Negative) Urine Bilirubin Negative (Negative) Urine Urobilinogen Normal mg/dL (Negative) Urine Leukocyte Esterase Negative /uL (Negative) Urine RBC 1 /hpf (0 - 3) Urine WBC 1 /hpf (0 - 3) Urine Squamous Epithelial Cells None seen /hpf (<5) Urine Bacteria None seen /hpf (None Seen) Urine Glucose Normal mg/dL (Normal) Microbiology Microbiology Date/Time Source Procedure Growth Status 09/13/24 05:10 Nose MRSA Screen - Final Methicillin Resistant S.aureus Complete 09/12/24 20:54 Stool Stool Culture - Preliminary Resulted 09/12/24 20:54 Stool Shiga Toxin I & II - Final Resulted Labs and/or images reviewed: Labs reviewed by me, Image(s) reviewed by me Assessment/Plan Assessment/Plan Impression: -rule out ACS -history of coronary artery disease -diarrhea -rule out gastroenteritis, abdominal pain -COPD -hypertension -rule out GI bleed Plan: Events: Continues to have diarrhea, lightheadedness. Negative for C diff -start Questran and LomotilC -FOBT negative. Stool culture pending -PPI -continue dual antiplatelet therapy at this time -bronchodilators p.r.n. -continue Flagyl 500 mg p.o. q.8 hours -potassium replacement -reassess labs in a.m., possible discharge in a.m. Total time spent with patient discussing and formulating plan of care: 35 minutes. This medical document was created using an electronic medical record system with [facility] system. Although this document has been carefully reviewed, there may still be some phonetic and typographical errors. These areas are purely typographical due to imperfections of the software programs, and do not reflect any compromise in the patient's medical care. Plan discussed with: Patient, Other (RN) My Orders Orders - SUMAN RAMOS NP Procedure Category Date Status Time Bacitracin Ointment PHA 09/13/24 In Process 22:00 Date of Service: Sep 14, 2024 Billing Provider: SUMAN RAMOS NP Common Visit Codes: [id number] INP/OBS CARE(HIGH) SUMAN RAMOS NP Sep 14, 2024 15:50
[2024-09-14] MEDS: CHOLESTYRAMINE 4 GM POWDER PO ONE ×2 (16:00→18:28)
[2024-09-14] MEDS ORDERED: DIPHENOXYLATE W/ATROPINE 2.5 MG TAB PO PRN (16:00)
[2024-09-15 01:00] VITALS: BP 105/63; PULSE 60; RESP 17; TEMP 98.6; O2SAT 97
[2024-09-15 05:00] VITALS: BP 92/50; PULSE 58; RESP 16; TEMP 98.8; O2SAT 96
[2024-09-15 06:36] LABS: Anion Gap 9 (5-15); Carbon Dioxide 24 mmol/L (20-31); Chloride 105 mmol/L (98-107); Potassium 3.5 mmol/L (3.5-5.1); Sodium 138 mmol/L (136-145)
[2024-09-15 06:37] LABS: Calcium 9.3 mg/dL (8.7-10.4)
[2024-09-15 06:42] LABS: BUN/Creatinine Ratio 13.3 (10.0-20.0); Blood Urea Nitrogen 11 mg/dL (9-23); Glucose 99 mg/dL (74-106)
[2024-09-15 08:00] VITALS: PULSE 59; PULSE 74; RESP 18
[2024-09-15 08:51] VITALS: BP 116/61; PULSE 59; RESP 18; TEMP 97.7; O2SAT 98
[2024-09-15] MEDS ORDERED: METR-344 PO (10:34)
[2024-09-15] MEDS ORDERED: DIPH2.5T73 PO ×2 (10:35→10:36)
[2024-09-15] MEDS ORDERED: LOPE2CAP16 PO (10:37)
--- NOTE | 2024-09-15 10:42 | DVHDS2 ---
Discharge Summary Date of Admission Sep 11, 2024 at 13:29 Date of Discharge: Sep 15, 2024 Admitting Diagnosis Chest pain Labs/Diagnostic Data: Laboratory Results Test 09/15/24 06:27 09/15/24 05:09 09/13/24 05:23 09/12/24 20:54 POC Glucose 107 mg/dl (70-106) Sodium Level 138 mmol/L (136-145) Potassium Level 3.5 mmol/L (3.5-5.1) Chloride Level 105 mmol/L (98-107) Carbon Dioxide Level 24 mmol/L (20-31) Anion Gap 9 (5-15) Blood Urea Nitrogen 11 mg/dL (9-23) Creatinine 0.83 mg/dL (0.700-1.30) Glomerular Filtration Rate Calc 96 mL/min (>90) BUN/Creatinine Ratio 13.3 (10.0-20.0) Serum Glucose 99 mg/dL (74-106) Calcium Level 9.3 mg/dL (8.7-10.4) White Blood Count 4.8 10^3/uL (4.4-10.8) Red Blood Count 3.78 10^6/uL (4.5-5.90) Hemoglobin 12.0 g/dL (13.5-17.5) Hematocrit 34.1 % (41.0-53.0) Mean Corpuscular Volume 90.3 fL (80.0-100.0) Mean Corpuscular Hemoglobin 31.8 pg (28.0-32.0) Mean Corpuscular Hemoglobin Concent 35.2 g/dL (32.0-36.0) Red Cell Distribution Width 13.8 % (11.8-14.3) Platelet Count 165 10^3/uL (140-450) Mean Platelet Volume 6.4 fL (6.9-10.8) Neutrophils (%) (Auto) 69.9 % (37.0-80.0) Lymphocytes (%) (Auto) 18.2 % (10.0-50.0) Monocytes (%) (Auto) 10.1 % (0.0-12.0) Eosinophils (%) (Auto) 1.4 % (0.0-7.0) Basophils (%) (Auto) 0.4 % (0.0-2.0) Neutrophils # (Auto) 3.4 10 ^3/uL (1.6-8.6) Lymphocytes # (Auto) 0.9 10 ^3/uL (0.4-5.4) Monocytes # (Auto) 0.5 10 ^3/uL (0-1.3) Eosinophils # (Auto) 0.1 10 ^3/uL (0-0.8) Basophils # (Auto) 0 10 ^3/uL (0-0.2) Nucleated Red Blood Cells 0.1 % Stool Occult Blood Negative (Negative) Stool Occult Blood Sample #3 (Negative) Test 09/11/24 14:45 09/11/24 10:08 09/11/24 09:50 09/11/24 07:04 Influenza Type A Antigen Negative (Negative) Influenza Type B Antigen Negative (Negative) SARS-CoV-2 Antigen (Rapid) Negative (NEGATIVE) Urine Color Light-yellow (Yellow) Urine Clarity Clear (Clear) Urine pH 5.5 (5.0-9.0) Urine Specific [place] 1.019 (1.001-1.035) Urine Protein Negative (Negative) Urine Ketones Negative (Negative) Urine Blood Negative /uL (Negative) Urine Nitrite Negative (Negative) Urine Bilirubin Negative (Negative) Urine Urobilinogen Normal mg/dL (Negative) Urine Leukocyte Esterase Negative /uL (Negative) Urine RBC 1 /hpf (0 - 3) Urine WBC 1 /hpf (0 - 3) Urine Squamous Epithelial Cells None seen /hpf (<5) Urine Bacteria None seen /hpf (None Seen) Urine Glucose Normal mg/dL (Normal) Troponin I High Sensitivity 3 ng/L (</=54) Total Bilirubin 0.5 mg/dL (0.2-1.0) Aspartate Amino Transferase (AST) 16 U/L (13-40) Alanine Aminotransferase (ALT) 15 U/L (7-40) Alkaline Phosphatase 66 U/L (46-116) Total Protein 7.5 g/dL (5.7-8.2) Albumin 4.7 g/dL (3.2-4.8) Other Laboratory Tests 09/15/24 05:09 09/13/24 05:23 Brief Hx & Hospital Course: History of Present Illness 68-year-old with a past medical history CHF diabetes hypertension GERD shortness of breath comes to the ED with complaints of severe chest pain for the past two days worsening patient does state that he has a history of CHF and has been having trouble maintaining his breath initial thought process was CHF exacerbation patient was evaluated in the ED tropes were done to initiate and rule out acute coronary disease patient was recommended for continued evaluation and management. Course of hospitalization: Patient was states that his chest pain has resolved, now complaining of at generalized abdominal pain, multiple bouts of diarrhea, as well as headache. Troponins have been negative. Cardiology consultation was obtained who has cleared the patient from their services given normal troponins as well as echocardiogram without any acute findings. Patient had KUB. Patient had persistent diarrhea with C diff ruled out as well as any bacterial etiology being identified. Patient was placed on Flagyl. Given negative C diff, patient was started with Questran Lomotil. Patient states that his diarrhea has decreased dramatically. All his symptoms have resolved. The patient was agreeable to be discharged home and be continued on Flagyl 500 mg p.o. every 8 hours as needed for four days as well as having Imodium 2 mg every 8-12 hours for diarrhea. He is instructed to continue all previous home medications and follow up with his PCP in 1-2 weeks. The patient was agreeable with discharge plan. All questions answered. Physical examination General: Alert and Oriented x3. No acute distress. Well-nourished. Eyes: EOMI. Anicteric. HENT: Moist mucous membranes. Lungs: Clear to auscultation bilaterally. No accessory muscle use. Cardiovascular: Regular rate and rhythm. No murmur. No JVD. Abdomen: Soft, non-tender and non-distended. No palpable masses. Extremities: No edema. Non-tender. Skin: No rashes or lesions. Warm. Neurologic: No focal neurological deficits. CN II-XII grossly intact, but not individually tested. Psychiatric: Cooperative. Appropriate mood and affect. Total time spent with patient discussing and formulating plan of care: 35 minutes. This medical document was created using an electronic medical record system with [employer] system. Although this document has been carefully reviewed, there may still be some phonetic and typographical errors. These areas are purely typographical due to imperfections of the software programs, and do not reflect any compromise in the patient's medical care. Consults/Reason for consult Cardiology: Chest pain Condition at Discharge: Fair Final Diagnosis/Problems List Abdominal pain secondary to gastroenteritis Secondary Diagnosis: -ruled out ACS -history of coronary artery disease -diarrhea -gastroenteritis, abdominal pain -COPD -hypertension -ruled out GI bleed Discharge Disposition: Home Discharge Instruct/Medications Diet: Consistent carbohydrate, Cardiac 2g Na,low cholest Activity: No Restrictions, As Tolerated Follow Up/Referral: PCP in 1-2 weeks Medications: Flagyl 500 mg p.o. q.8 hours x4 days Imodium 2 mg p.o. Q 12 hours as needed for diarrhea Continue all previous home medications 36 Discharge Statement: "Patient was advised to return to the ER or call 911 if any headaches, dizziness, shortness of breath, chest pain, abdominal pain, bleeding, fevers, or worsening of medical condition. Patient was counseled about treatment plan, medications, possible side effects, patientverbalized understanding. All questions were answered to the best of my ability. This discharge took greater then 30 minutes in planning, reviewing documentation, counseling the patient, and discussing with other team members." ASSESSMENT ASSESSMENT Assessment Abdominal pain secondary to gastroenteritis Date of Service: Sep 15, 2024 Billing Provider: SUMAN RAMOS NP Common Visit Codes: 38379-EHF/OBS DISCH DAY >30min SUMAN RAMOS NP Sep 15, 2024 10:42
[2024-09-15] MEDS: CHOLESTYRAMINE 4 GM POWDER PO SCH (11:12)
[2024-09-15 12:35] VITALS: BP 116/61; PULSE 59; RESP 18; TEMP 97.7; O2SAT 98
[2024-09-15 13:07] VITALS: BP 129/75; PULSE 69; RESP 18; TEMP 98; O2SAT 98
== END 2024-09-15 16:15 | disposition home or self-care (01) | DRG 248 ==
LOC: ER 06:51 → TELE 13:29 → TELE-EAST 09-12 22:21
PROVIDERS: ADMIT Hospitalist; ATTEND Nurse Practitioner Acute Care
DX: A04.9 Bacterial intestinal infection, unspecified (principal); I11.0 Hypertensive heart disease with heart failure; I50.9 Heart failure, unspecified; E11.9 Type 2 diabetes mellitus without complications; Z20.822 Contact with and (suspected) exposure to COVID-19; K21.9 Gastro-esophageal reflux disease without esophagitis; I25.10 Atherosclerotic heart disease of native coronary artery without angina pectoris; J44.9 Chronic obstructive pulmonary disease, unspecified; Z88.3 Allergy status to other anti-infective agents; Z90.49 Acquired absence of other specified parts of digestive tract
CPT/HCPCS: 36415; 71045; 74018; 80048; 80053; 81001; 82270; 82962; 84484; 85025; 87045; 87081; 87426; 87427; 87804; 93005; 93306; 96374; 96375; 99291; G0378; J2405; J3490